=== PATIENT | male | born 1945 | race Caucasian/White ===

== ENCOUNTER 2018-04-17 06:19 | Inpatient (IN) ==
[2018-04-17] MEDS ORDERED: *HR* Morphine 2 MG/ML SYRINGE IVP PRN (08:41)
[2018-04-17] MEDS ORDERED: Nitroglycerin 0.4 MG TAB.SUBL SL PRN (08:41)
[2018-04-17] MEDS ORDERED: Ondansetron 4 MG/2 ML VIAL IVP PRN (08:41)
[2018-04-17] MEDS ORDERED: D5% in Water 1,000 ML IVC PRN (08:47)
[2018-04-17] MEDS ORDERED: *HR* Dextrose 50 % in Water (Syg) 50 ML SYRINGE IVP PRN (08:47)
[2018-04-17] MEDS ORDERED: Dextrose Gel 15 GM/37.5 ML TUBE PO PRN ×2 (08:47)
[2018-04-17] MEDS ORDERED: Albuterol 2.5 MG/3 ML NEBULIZER IH PRN (08:51)
[2018-04-17 09:16] LABS: Basophils # 0.1 K/mcL (0.0-0.2); Basophils % 0.6 %; Eosinophils # 0.1 K/mcL (0.0-0.6); Hematocrit 41.6 % (37.5-50.1); Hemoglobin 13.6 g/dL (12.9-16.9); Immature Granulocytes % 0.6 % (0-4); Lymphocytes # 1.2 K/mcL (0.6-4.6); Mean Corpuscular HGB Conc 32.7 g/dL (31.6-35.5); Mean Corpuscular Volume 82.5 fL (83.0-100.0); Mean Platelet Volume 9.8 fL (9.4-12.4); Monocytes # 0.9 K/mcL (0.0-1.3); Monocytes % 10.6 %; Neutrophils # 6.3 K/mcL (1.6-8.9); Platelet Count 167 K/mcL (140-400); Red Blood Count 5.04 M/mcL (4.19-5.50); Red Cell Distribution Width 15.7 % (11.5-14.5); Segmented Neutrophils % 73.2 %
[2018-04-17] MEDS ORDERED: Naloxone 0.4 MG/ML INJ IVP PRN (09:20)
[2018-04-17] MEDS ORDERED: Acetaminophen 325 MG TABLET PO PRN (09:20)
[2018-04-17] MEDS ORDERED: NON-FORMULARY MEDICATION 1 EACH EACH (Insulin Aspart [Novolog Flexpen] 4 UNIT) SQ SCH (09:28)
[2018-04-17] MEDS ORDERED: Cyanocobalamin (B-12) 1,000 MCG/ML VIAL IM SCH (09:30)
[2018-04-17 09:35] LABS: BUN/Creatinine Ratio 11 (6-26); Blood Urea Nitrogen 12 mg/dL (8-23); Carbon Dioxide 25 mEq/L (23-29); Chloride 99 mEq/L (98-107); Chol/HDL Ratio 2.1 (0-4.9); Cholesterol 99 mg/dL (< 200); Glucose 174 mg/dL (70-105); HDL Cholesterol 48 mg/dL (40-59); LDL Cholesterol,Calculated 39 mg/dL (0-99); Osmolality,Calculated 276 (280-300); Potassium 4.7 mEq/L (3.5-5.1); Sodium 131 mEq/L (136-145); Triglycerides 59 mg/dL (< 150); eGFR For Non-African Americans > 60 (> 60)
[2018-04-17 09:39] LABS: Troponin I 0.05 ng/mL (< 0.04)
[2018-04-17 09:51] LABS: Estimated Average Glucose 174 mg/dl; Hemoglobin A1C 7.7 %
[2018-04-17] MEDS: Multivit/Ca/Min/Fe/FA 1 TAB TABLET PO SCH (10:05)
[2018-04-17] MEDS: Pregabalin 75 MG CAPSULE PO SCH ×2 (10:05→20:48)
[2018-04-17] MEDS: Aspirin 81 MG TAB.CHEW PO SCH (10:07)
[2018-04-17] MEDS: Apixaban 5 MG TABLET PO SCH ×2 (10:07→20:47)
[2018-04-17] MEDS: *HR* Amiodarone 200 MG TABLET PO SCH (10:07)
[2018-04-17] MEDS: Fluticasone Propionate Nasal 50 MCG/SPRAY BOTTLE NS SCH (10:11)
[2018-04-17] MEDS: Insulin LISPRO 300 UNITS/3 ML VIAL SQ SCH ×5 (11:27→21:49)
[2018-04-17] MEDS ORDERED: Insulin LISPRO 300 UNITS/3 ML VIAL SQ SCH ×2 (11:30→21:00)
[2018-04-17] MEDS: Budesonide/Formoterol 160/4.5 MDI IH SCH ×3 (11:57→19:36)
[2018-04-17] MEDS ORDERED: NON-FORMULARY MEDICATION 1 EACH EACH (Insulin Aspart [Novolog Flexpen] 10 UNIT) SQ SCH (12:00)
--- NOTE | 2018-04-17 12:37 | Internal Med History&Physical ---
Date of Encounter: 04/17/18 Time of Encounter: 09:07 Internal Medicine - H&P: [facility] Chief complaint: "Chest pain" Admitted From: Hospital to Hospital Transfer Plans for Post Hospital Care: Home History of present illness: Mr. Reyez is a 72 year old male with PMH of significant CAD s/p multiple stents and multiple CABGs, Type II DM, HTN, HLD, Afib, COPD, and SPIKE, who presented to OSH ED today with chest pain. He states that around 3 AM today, he woke up with a sensation of his "heart racing." He subsequently "felt an elephant" on his chest. He took two doses of SL nitro at home, which helped with the pain. In the OSH ED, chest pain resolved with 1 dose of nitro and 1 dose of morphine. Initial troponin was WNL. He is pain free at this time. He denies any fever, chills, SOB, nausea, vomiting, abdominal pain, changes in bladder, or changes in bowels. He recently moved here from [facility], and he does not yet have a PCP or billing collections specialist here. He states that he has been compliant with all of his medications. He had last ECHO and stress test about 1 year ago. He has no other complaints at this time. Past Med Surg Social Fam HX - Past Medical History Attestation: Yes The following information was validated with the patient. Source: patient Medical history: atrial fibrillation, COPD, coronary artery disease, diabetes ( Type II), hyperlipidemia, hypertension, myocardial infarction Additional medical history: Mitral Regurgitation, SPIKE Psychiatric history: no psych history - Past Surgical History Surgical History: coronary bypass (CABG), AICD Additional surgical history: Right rotator cuff surgery, ICD-2004 - Social History Smoking Status: Former smoker Smokeless Tobacco Status: No Alcohol use: rarely Drug use: none - Additional Family History Additional family history: No significant family history per patient. Internal Medicine - H&P: Meds Albuterol Sulfate [Proair Hfa] 2 puff IH TID PRN 04/17/18 [History] Amiodarone [Cordarone] 200 mg PO DAILY 04/17/18 [History] Apixaban [Eliquis] 5 mg PO BID 04/17/18 [History] Aspirin 81 mg PO DAILY 04/17/18 [History] Budesonide/Formoterol 160/4.5 [Symbicort 160/4.5] 2 puff IH BIDR 04/17/18 [ History] Calcium Carbonate [Tums] 1,000 mg PO DAILY 04/17/18 [History] Carvedilol 6.25 mg PO BID 04/17/18 [History] Cyanocobalamin (B-12) [Vitamin B12] 1,000 mcg IM Q2W 04/17/18 [History] Fluticasone Propionate Nasal [Flonase] 50 mcg NS DAILY 04/17/18 [History] Insulin ASPART [Novolog Flexpen] 4 unit SQ 0900 04/17/18 [History] Insulin ASPART [Novolog Flexpen] 10 unit SQ 1200,1700 04/17/18 [History] Insulin Glargine,Hum.rec.anlog [Lantus Solostar] 35 unit SQ HS 04/17/18 [History ] Lisinopril [Zestril] 10 mg PO DAILY 04/17/18 [History] Melatonin 10 mg PO HS 04/17/18 [History] Metformin HCl [Glucophage] 1,000 mg PO BID 04/17/18 [History] Multivitamin [One Daily Multivitamin] 1 tab PO DAILY 04/17/18 [History] Nitroglycerin [Nitrostat] 0.4 mg SL Q5MIN 04/17/18 [History] Pregabalin [Lyrica] 150 mg PO BID 04/17/18 [History] Rosuvastatin [Crestor] 40 mg PO HS 04/17/18 [History] 3 Allergy/AdvReac Type Severity Reaction Status Date / Time No Known Allergies Allergy Verified 04/17/18 04:22 All Systems PM: A 10-system review of systems was performed and is negative for pertinent findings except as documented above in the HPI. - Constitutional Vitals: Temp Pulse Resp BP Pulse Ox 97.7 F 54 16 121/71 98 04/17/18 10:50 04/17/18 10:50 04/17/18 11:57 04/17/18 10:50 04/17/18 11:57 General appearance: Present: cooperative, A&O X 3, pleasant, no acute distress, obese, answers questions appropriately - Head Head exam: Present: atraumatic, normocephalic - Eye Eye exam: Present: EOMI, PERRL. Absent: conjunctival injection, nystagmus, scleral icterus - ENT ENT exam: Present: mucous membranes moist, normal external ear exam, normal oropharynx - Neck Neck exam general surgery: Present: supple, trachea midline. Absent: lymphadenopathy, tenderness, thyromegaly - Respiratory Respiratory exam: Present: CTAB. Absent: accessory muscle use, rales, rhonchi, wheezes Additional comments: Normal WOB - Cardiovascular Cardiovascular exam: Present: RRR, +S1, +S2. Absent: diastolic murmur, gallop, rubs, systolic murmur Additional comments: No BLE edema - GI/Abdominal GI/Abdominal exam: Present: normal bowel sounds, soft. Absent: distended, hepatomegaly, mass, splenomegaly, tenderness - Neurological Exam Neurological exam: Present: alert, CN II-XII intact, oriented X3, no focal deficits, strengths equal and symetr throughout. Absent: motor sensory deficit , facial droop, speech deficit - Psychiatric Psychiatric exam: Present: normal affect, normal mood. Absent: agitated, anxious, depressed - Skin Skin exam: Present: dry, intact, warm. Absent: cyanosis, rash Internal Med - H&P Results - Labs CBC & Chem 7: 04/17/18 08:49 04/17/18 08:49 Labs: Short CBC 04/17/18 Range/Units 08:49 WBC 8.7 (4.3-11.1) K/mcL Hgb 13.6 (12.9-16.9) g/dL Hct 41.6 (37.5-50.1) % Plt Count 167 (140-400) K/mcL Neutrophils # 6.3 (1.6-8.9) K/mcL BMP 04/17/18 08:49 Sodium 131 L Potassium 4.7 Chloride 99 Carbon Dioxide 25 BUN 12 Creatinine 1.12 Glucose 174 H Calcium 9.0 Cardiac Enzymes 04/17/18 Range/Units 08:49 Troponin I 0.05 H* (< 0.04) ng/mL - VTE Contraindication No Overlap Therapy: Admin of oral Factor Xa Inhibitor - Assessment and plan (1) Chest pain Current Visit: Yes Status: Acute Assessment and plan: Admit for observation with telemetry. Trend cardiac enzymes x 3. Obtain ECHO. Continue home medications. Start supplemental oxygen. Start SL nitro and IV morphine PRN chest pain. Obtain stress test in AM. Obtain UDS. Obtain labwork in AM. Consider cardiology consult based on ECHO and stress test results. SW consulted to set up close PCP and cardiology follow up at discharge. Qualifiers: Chest pain type: unspecified Qualified Code(s): R07.9 - Chest pain, unspecified (2) CAD (coronary artery disease) Current Visit: Yes Status: Acute Assessment and plan: Management as per above. Qualifiers: Coronary Disease-Associated Artery/Lesion type: unspecified vessel or lesion type [place] vs. transplanted heart: unspecified whether [place] or transplanted heart Associated angina: angina presence unspecified Qualified Code(s): I25.10 - Atherosclerotic heart disease of [place] coronary artery without angina pectoris (3) Afib Current Visit: Yes Status: Acute Assessment and plan: Continue home medications. Qualifiers: Atrial fibrillation type: chronic Qualified Code(s): I48.2 - Chronic atrial fibrillation (4) HTN (hypertension) Current Visit: Yes Status: Chronic Assessment and plan: Continue home medications. Qualifiers: Hypertension type: essential hypertension Qualified Code(s): I10 - Essential (primary) hypertension (5) HLD (hyperlipidemia) Current Visit: Yes Status: Chronic Assessment and plan: Continue home medications. Qualifiers: Hyperlipidemia type: mixed hyperlipidemia Qualified Code(s): E78.2 - Mixed hyperlipidemia (6) Type 2 diabetes mellitus with peripheral neuropathy Current Visit: Yes Status: Chronic Assessment and plan: Start accuchecks and moderate dose SSI QID AC/HS. Start home insulin regimen. (7) COPD (chronic obstructive pulmonary disease) Current Visit: Yes Status: Acute Assessment and plan: Start albuterol nebs Q4H PRN SOB/wheezing. Continue home inhalers. Qualifiers: COPD type: unspecified COPD Qualified Code(s): J44.9 - Chronic obstructive pulmonary disease, unspecified (8) SPIKE (obstructive sleep apnea) Current Visit: Yes Status: Chronic Assessment and plan: Start CPAP QHS at home settings. (9) DVT prophylaxis Current Visit: Yes Status: Acute Assessment and plan: Start SCDs. Continue home eliquis. - Time Spent With Patient Total time spent is greater than 50% in coordination of care (as documented) at patient's floor/unit and/or counseling patient: less than 15 minutes
[2018-04-17 13:15] LABS: Amphetamine Screen,Urine Negative ng/mL (Cutoff=1000); Barbiturate Screen,Urine Negative ng/mL (Cutoff=200); Benzodiazepines Screen,Urine Negative ng/mL (Cutoff=200); Cannabinoid Screen,Urine Negative ng/mL (Cutoff = 50); Cocaine Screen,Urine Negative ng/mL (Cutoff= 300); Opiate Screen,Urine Positive ng/mL (Cutoff=300); Phencyclidine Screen,Urine Negative ng/mL (Cutoff=25)
[2018-04-17] MEDS ORDERED: Perflutren Lipid Microsphere 2 ML VIAL ONE (19:19)
[2018-04-17] MEDS ORDERED: Perflutren Lipid Microsphere 1.3 ML in 0.9 % Sodium Chloride 8.7 ML IVP ONE (19:23)
[2018-04-17] MEDS: Melatonin 3 MG TABLET PO SCH (20:47)
[2018-04-17] MEDS: Insulin DETEMIR 100 UNIT/ML X5UNITS SQ SCH (21:52)
[2018-04-18 06:45] LABS: Basophils % 0.5 %; Eosinophils # 0.1 K/mcL (0.0-0.6); Eosinophils % 1.6 %; Hematocrit 39.9 % (37.5-50.1); Immature Granulocytes % 0.3 % (0-4); Lymphocytes # 1.1 K/mcL (0.6-4.6); Lymphocytes % 14.1 %; Mean Corpuscular HGB Conc 32.6 g/dL (31.6-35.5); Mean Corpuscular Hemoglobin 26.4 pg (28.0-33.3); Mean Corpuscular Volume 81.1 fL (83.0-100.0); Mean Platelet Volume 9.9 fL (9.4-12.4); Monocytes # 0.9 K/mcL (0.0-1.3); Neutrophils # 5.5 K/mcL (1.6-8.9); Platelet Count 162 K/mcL (140-400); Red Blood Count 4.92 M/mcL (4.19-5.50); Red Cell Distribution Width 15.9 % (11.5-14.5); Segmented Neutrophils % 71.5 %
[2018-04-18 06:46] LABS: INR 1.3; Prothrombin Time 14.6 Seconds (9.4-12.1)
[2018-04-18 07:07] LABS: BUN/Creatinine Ratio 12 (6-26); Blood Urea Nitrogen 14 mg/dL (8-23); Calcium 9.1 mg/dL (8.6-10.3); Carbon Dioxide 21 mEq/L (23-29); Chloride 100 mEq/L (98-107); Glucose 149 mg/dL (70-105); Magnesium 1.8 mg/dL (1.6-2.6); Osmolality,Calculated 279 (280-300); Potassium 4.2 mEq/L (3.5-5.1); Sodium 133 mEq/L (136-145); eGFR For Non-African Americans > 60 (> 60)
[2018-04-18] MEDS: Insulin LISPRO 300 UNITS/3 ML VIAL SQ SCH ×7 (07:47→20:17)
[2018-04-18] MEDS: Budesonide/Formoterol 160/4.5 MDI IH SCH ×2 (08:04→19:56)
[2018-04-18] MEDS: Apixaban 5 MG TABLET PO SCH ×2 (09:46→20:16)
[2018-04-18] MEDS: Pregabalin 75 MG CAPSULE PO SCH ×2 (09:46→20:16)
[2018-04-18] MEDS: *HR* Amiodarone 200 MG TABLET PO SCH (09:46)
[2018-04-18] MEDS: Fluticasone Propionate Nasal 50 MCG/SPRAY BOTTLE NS SCH (09:46)
[2018-04-18] MEDS: Aspirin 81 MG TAB.CHEW PO SCH (09:46)
[2018-04-18] MEDS: Multivit/Ca/Min/Fe/FA 1 TAB TABLET PO SCH (09:46)
--- NOTE | 2018-04-18 09:51 | Internal Med Progress Note ---
Hospitalist Progress Note - Encounter Date of Encounter: 04/18/18 Time of Encounter: 08:47 - Subjective Interval History: Patient had no acute events overnight. He states that he remains chest pain free. He denies fever, chills, SOB, nausea, vomiting, or abdominal pain. He has no complaints at this time. - Exam Vitals: Temp Pulse Resp BP Pulse Ox 98.3 F 50 18 124/78 97 04/18/18 07:34 04/18/18 07:34 04/18/18 08:04 04/18/18 07:34 04/18/18 08:04 Exam: Gen - Awake, alert, no acute distress HEENT - NCAT, PERRLA, EOMI, hearing grossly intact, oropharynx benign CV - RRR, normal S1 and S2, no M/R/G, no BLE edema Resp - Normal WOB, CTAB, no W/R/R GI - Soft, NT/ND, no masses, normal bowel sounds, no HSP Skin - Warm, dry, no rashes/lesions/ulcers Psych - Normal mood and affect, no depression or anxiety - Assessment and Plan (1) Chest pain Current Visit: Yes Status: Resolved Assessment and Plan: No chest pain since admission. Troponin peaked at 0.05 and then trended down to 0.04. Cancel stress test this AM and consult cardiology; appreciate their input. Obtain ECHO. Continue home medications. Continue supplemental oxygen. Continue SL nitro and IV morphine PRN chest pain. Will await further recommendations from cardiology. Recheck labwork in AM. SW consulted to set up close PCP and cardiology follow up at discharge. (2) CAD (coronary artery disease) Current Visit: Yes Status: Chronic Assessment and Plan: Management as per above. (3) Afib Current Visit: Yes Status: Chronic Assessment and Plan: Continue home medications. Cardiology consulted as per above; appreciate their input. (4) HTN (hypertension) Current Visit: Yes Status: Chronic Assessment and Plan: Continue home medications. (5) HLD (hyperlipidemia) Current Visit: Yes Status: Chronic Assessment and Plan: Continue home medications. (6) Type 2 diabetes mellitus with peripheral neuropathy Current Visit: Yes Status: Chronic Assessment and Plan: Continue accuchecks and moderate dose SSI QID AC/HS. Continue home insulin regimen. (7) COPD (chronic obstructive pulmonary disease) Current Visit: Yes Status: Chronic Assessment and Plan: Continue albuterol nebs Q4H PRN SOB/wheezing. Continue home inhalers. (8) SPIKE (obstructive sleep apnea) Current Visit: Yes Status: Chronic Assessment and Plan: Continue CPAP QHS at home settings. (9) DVT prophylaxis Current Visit: Yes Status: Acute Assessment and Plan: Continue SCDs and home eliquis. 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) Internal Medicine: Result - Labs CBC & Chem 7: 04/18/18 05:47 04/18/18 05:47 Labs: Short CBC 04/18/18 Range/Units 05:47 WBC 7.7 (4.3-11.1) K/mcL Hgb 13.0 (12.9-16.9) g/dL Hct 39.9 (37.5-50.1) % Plt Count 162 (140-400) K/mcL Neutrophils # 5.5 (1.6-8.9) K/mcL BMP 04/18/18 05:47 Sodium 133 L Potassium 4.2 Chloride 100 Carbon Dioxide 21 L BUN 14 Creatinine 1.13 Glucose 149 H Calcium 9.1 Cardiac Enzymes 04/17/18 04/17/18 Range/Units 14:21 19:58 Troponin I 0.04 H* 0.04 H* (< 0.04) ng/mL - ABG Interpretation ABG results: PT/INR, D-dimer PT 14.6 Seconds (9.4-12.1) H 04/18/18 05:47 - VTE Contraindication No Overlap Therapy: Admin of oral Factor Xa Inhibitor Consult Discharge Plan - Plan Referrals: NONE,PCP [Primary Care Provider] - (1) Chest pain Qualifiers: Chest pain type: unspecified Qualified Code(s): R07.9 - Chest pain, unspecified (2) CAD (coronary artery disease) Qualifiers: Coronary Disease-Associated Artery/Lesion type: unspecified vessel or lesion type [place] vs. transplanted heart: unspecified whether [place] or transplanted heart Associated angina: angina presence unspecified Qualified Code(s): I25.10 - Atherosclerotic heart disease of [place] coronary artery without angina pectoris (3) Afib Qualifiers: Atrial fibrillation type: chronic Qualified Code(s): I48.2 - Chronic atrial fibrillation (4) HTN (hypertension) Qualifiers: Hypertension type: essential hypertension Qualified Code(s): I10 - Essential (primary) hypertension (5) HLD (hyperlipidemia) Qualifiers: Hyperlipidemia type: mixed hyperlipidemia Qualified Code(s): E78.2 - Mixed hyperlipidemia (7) COPD (chronic obstructive pulmonary disease) Qualifiers: COPD type: unspecified COPD Qualified Code(s): J44.9 - Chronic obstructive pulmonary disease, unspecified
--- NOTE | 2018-04-18 13:43 | Cardiology Consult Note ---
Date of Encounter: 04/18/18 Time of Encounter: 13:20 Assessment and Plan (1) Chest pain Current Visit: Yes Status: Resolved Pt with multiple coronary aa disease risk factors -He has a PMH of CAD s/p 8 total stents and CABG, t2DM, HTN, a Fib, COPD, SPIKE on CPAP, HDL. He presented to the hospital on at 3am with the sensation that his heart was "beating out of his chest" and had associated cold sweats. He said he felt like he had a squeezing feeling in his chest substernally, like an "elephant was sitting on his chest." -the pt has a hx of 3 TN's but states that this pain is unlike his prior TN's -at home he took 2 SL nitroglycerins, which didn't really help the pain. He was given 1x more nitro in the ED and a dose of morphine and 4 baby ASA's Troponin was 0.05 x1, 0.04 x2 -last ECHO was 1yr ago -ECHO 04/17/18 Impressions: LVEF 45%, Mildly dilated left ventricle, Diastolic dysfunction with restricted filling pattern. There is no LV thrombus. RV size is not optimally visualized. Function mildly reduced by Doppler. Mild-moderate mitral regurgitation. Moderate tricuspid regurgitation. Mild pulmonic regurgitation. Mild pulmonary hypertension. A device lead was visualized in the right atrium and right ventricle. -CXR negative for acute cardiopulmonary process -EKG at [facility] showed bradycardia, old q waves present, QT prolongation Plan: -continue telemetry -Continue home medications: Amiodarone 200mg PO daily, ASA 81mg PO daily, Coreg 6.25mg PO BID, Zestril 10mg PO daily, Crestor 40mg PO hs -Nitro 0.4mg SL prn chest pain -plan for stress test this weekend -pt to establish care with [facility] after discharge for close follow up -cardiac diet Qualifiers: Chest pain type: unspecified Qualified Code(s): R07.9 - Chest pain, unspecified (2) Chronic HFrEF (heart failure with reduced ejection fraction) Current Visit: No Status: Chronic Pt has a hx of 3x TN, CABG and s/p PCI with a total of 8 stents. He has a hx of multiple CAD risk factors including DM, obesity, cigarette abuse Troponin was 0.05 x1, 0.04 x2 -last ECHO was 1yr ago -ECHO 04/17/18 Impressions: LVEF 45%, Mildly dilated left ventricle, Diastolic dysfunction with restricted filling pattern. There is no LV thrombus. RV size is not optimally visualized. Function mildly reduced by Doppler. Mild-moderate mitral regurgitation. Moderate tricuspid regurgitation. Mild pulmonic regurgitation. Mild pulmonary hypertension. A device lead was visualized in the right atrium and right ventricle. -EKG at [facility] showed bradycardia, old q waves present, QT prolongation Plan: -Continue home medications: Amiodarone 200mg PO daily, ASA 81mg PO daily, Coreg 6.25mg PO BID, Zestril 10mg PO daily, Crestor 40mg PO hs -manage modifiable risk factors -encourage low fat, low cholesterol heart healthy diet -encourage low sodium diet -encourage fluid restriction diet (3) CAD (coronary artery disease) Current Visit: No Status: Chronic Management as per above. Plan: -Continue home medications: Amiodarone 200mg PO daily, ASA 81mg PO daily, Coreg 6.25mg PO BID, Zestril 10mg PO daily, Crestor 40mg PO hs Qualifiers: Coronary Disease-Associated Artery/Lesion type: unspecified vessel or lesion type [place] vs. transplanted heart: unspecified whether [place] or transplanted heart Associated angina: angina presence unspecified Qualified Code(s): I25.10 - Atherosclerotic heart disease of [place] coronary artery without angina pectoris (4) Afib Current Visit: Yes Status: Chronic Currently in sinus rhythm. Bradycardic HR at 49, regular rhythm. Plan: -continue home meds - on Amiodarone 200mg PO daily, Coreg 6.25mg PO BID Qualifiers: Atrial fibrillation type: chronic Qualified Code(s): I48.2 - Chronic atrial fibrillation (5) HTN (hypertension) Current Visit: No Status: Chronic BP 119/76 -well controlled Plan: -continue home meds - Zestril 10mg PO daily Qualifiers: Hypertension type: essential hypertension Qualified Code(s): I10 - Essential (primary) hypertension (6) HLD (hyperlipidemia) Current Visit: No Status: Chronic Continue home meds -Crestor 40mg PO hs Qualifiers: Hyperlipidemia type: mixed hyperlipidemia Qualified Code(s): E78.2 - Mixed hyperlipidemia (7) SPIKE (obstructive sleep apnea) Current Visit: No Status: Chronic CPAP at night and as needed. Discussion w patient/family: The assessment and plan as outlined above was discussed with the patient and/or family members who expressed understanding and agreement. All questions were answered. Thank you for involving us in the care of your patient. Please call with any questions. History of Present Illness Consult date: 04/18/18 Requesting physician: Bj Mcpherson Consult reason: Chest pain, ACS, hx of CAD and aFib Chief complaint: "palpiltations" History of present illness: Mr. Reyez is a 72 year old male who is a transfer from [place]. He has a PMH of CAD s/p 8 total stents and CABG, t2DM, HTN, a Fib, COPD, SPIKE on CPAP, HDL. He presented to the hospital on at 3am with the sensation that his heart was "beating out of his chest" and had associated cold sweats. He said he felt like he had a squeezing feeling in his chest substernally, like an "elephant was sitting on his chest." -the pt has a hx of 3 TN's but states that this pain is unlike his prior TN's -at home he took 2 SL nitroglycerins, which didn't really help the pain. He was given 1x more nitro in the ED and a dose of morphine and 4 baby ASA's Troponin was 0.05 x1, 0.04 x2 At this time the patient denies any a chest pain. He has chronic SOB from his COPD. He denies N/V/D, abd pain, fevers, chills or cold sweats. He recently moved to the area and has yet to establish care with a [facility] -last ECHO was 1yr ago -ECHO 04/17/18 Impressions: LVEF 45%, Mildly dilated left ventricle, Diastolic dysfunction with restricted filling pattern. There is no LV thrombus. RV size is not optimally visualized. Function mildly reduced by Doppler. Mild-moderate mitral regurgitation. Moderate tricuspid regurgitation. Mild pulmonic regurgitation. Mild pulmonary hypertension. A device lead was visualized in the right atrium and right ventricle. -CXR negative for acute cardiopulmonary process Fluids - none Electrolytes - Sodium 133 Nutrition - cardiac diet DVT prophylaxis - on Eliquis GI prophylaxis - not indicated Past Med Surg Social Fam HX - Past Medical History Medical history: atrial fibrillation, COPD, coronary artery disease, diabetes ( Type II), hyperlipidemia, hypertension, myocardial infarction Additional medical history: Mitral Regurgitation, SPIKE Psychiatric history: no psych history - Past Surgical History Surgical History: coronary bypass (CABG), AICD Additional surgical history: Right rotator cuff surgery, ICD-2004 - Social History Smoking Status: Former smoker Smokeless Tobacco Status: No Alcohol use: rarely Drug use: none Medications and Allergies Albuterol Sulfate [Proair Hfa] 2 puff IH TID PRN 04/17/18 [History] Amiodarone [Cordarone] 200 mg PO DAILY 04/17/18 [History] Apixaban [Eliquis] 5 mg PO BID 04/17/18 [History] Aspirin 81 mg PO DAILY 04/17/18 [History] Budesonide/Formoterol 160/4.5 [Symbicort 160/4.5] 2 puff IH BIDR 04/17/18 [ History] Calcium Carbonate [Tums] 1,000 mg PO DAILY 04/17/18 [History] Carvedilol 6.25 mg PO BID 04/17/18 [History] Cyanocobalamin (B-12) [Vitamin B12] 1,000 mcg IM Q2W 04/17/18 [History] Fluticasone Propionate Nasal [Flonase] 50 mcg NS DAILY 04/17/18 [History] Insulin ASPART [Novolog Flexpen] 4 unit SQ 0900 04/17/18 [History] Insulin ASPART [Novolog Flexpen] 10 unit SQ 1200,1700 04/17/18 [History] Insulin Glargine,Hum.rec.anlog [Lantus Solostar] 35 unit SQ HS 04/17/18 [History ] Lisinopril [Zestril] 10 mg PO DAILY 04/17/18 [History] Melatonin 10 mg PO HS 04/17/18 [History] Metformin HCl [Glucophage] 1,000 mg PO BID 04/17/18 [History] Multivitamin [One Daily Multivitamin] 1 tab PO DAILY 04/17/18 [History] Nitroglycerin [Nitrostat] 0.4 mg SL Q5MIN 04/17/18 [History] Pregabalin [Lyrica] 150 mg PO BID 04/17/18 [History] Rosuvastatin [Crestor] 40 mg PO HS 04/17/18 [History] 3 Allergy/AdvReac Type Severity Reaction Status Date / Time No Known Allergies Allergy Verified 04/17/18 04:22 All Systems Review: The remainder of the systems were reviewed and are negative - Constitutional Constitutional: snoring, no chills, no fever(s), no night sweats - Cardiovascular Cardiovascular: chest pain with exertion, dyspnea at rest, dyspnea on exertion, orthopnea, palpitations, paroxysmal nocturnal dyspnea, no chest pain at rest, no radiating jaw, neck or arm pain - Gastrointestinal Gastrointestinal: no abdominal pain, no diarrhea, no nausea - Musculoskeletal Musculoskeletal: arthralgias - Neurological Neurological: no numbness, no syncope Physical Examination Vital Signs, Last 4 Hours Temp Pulse Resp BP Pulse Ox 04/18/18 11:19 97.9 F 49 16 119/76 96 General: Conversant HEENT: Atraumatic, Normocephaly Neck: No JVD Cardiac: Normal S1 and S2, Other (bradycardic) Lungs: Normal Breath Sounds, No Wheeze, Rales, Rhonchi Neuro: Alert and responsive, No focal deficits noted Abdomen: Soft, Non-Tender Musculoskeletal: No Chest Wall Tenderness Extremities: No Edema Results 04/18/18 05:47 04/18/18 05:47 Lab Results 04/17/18 04/17/18 04/18/18 14:21 19:58 05:47 WBC Hgb Hct Plt Count INR 1.3 Sodium Potassium Chloride Carbon Dioxide BUN Creatinine Glucose Calcium Magnesium Troponin I 0.04 H* 0.04 H* 04/18/18 04/18/18 05:47 05:47 WBC 7.7 Hgb 13.0 Hct 39.9 Plt Count 162 INR Sodium 133 L Potassium 4.2 Chloride 100 Carbon Dioxide 21 L BUN 14 Creatinine 1.13 Glucose 149 H Calcium 9.1 Magnesium 1.8 Troponin I Consult Discharge Plan - Plan Referrals: Markel Garcia MD [Partnered Physician] - 05/26/18 3:10 pm (Appointment with Dr. Garcia to establish a Primary Care Physician. Appointment is May 26 at 3:10 PM. A packet will be delivered within a week which will include the following: appointment card, map to office, list of things to bring ( insurance card, license, etc), medication form. If you need to cancel please give a 24 hour notice.) Kiet Victor, [Partnered Physician] - 05/20/18 11:30 am (Please arrive 10- 15 minutes early. Please bring your insurance card and current medication list. If you need to cancel please so do with a 24 hour notice. An appointment reminder card will be mailed to you prior to your appointment.) NONE,PCP [Primary Care Provider] -
--- NOTE | 2018-04-18 17:07 | Event Note ---
Date of Encounter: 04/18/18 Time of Encounter: 17:04 Residents consultation was cosigned. [facility] would not allow me to admit and provide attestation. Please consider this event note as attestation to that consultation. Complicated cardiac history in this 72-year-old patient, who has undergone 3 separate bypass surgeries as outlined in the consultation. Presents with complaints of dyspnea and occasional chest heaviness. Minimal troponin elevation noted. Patient states he was last seen by his rn flight in [facility] in June 2017. No issues reported at that time. Patient underwent stress test last summer, which he states was negative and did not require further cardiac intervention. Patient reports prior EF 50%. During this hospital stay, LVEF estimated to be 45%. We have requested records. After review of records, we will make further recommendations. Given his complaints of chest discomfort, no history of significant CAD, minimal troponin elevation, and previous stress test less than one year ago - I suspect patient will require a cardiac catheterization. We discussed this and if it becomes necessary, patient and would be agreeable. Further recommendations to follow. Thanks, Sergio Fall DO FACC
[2018-04-18] MEDS: Insulin DETEMIR 100 UNIT/ML X5UNITS SQ SCH (20:20)
[2018-04-18] MEDS: Melatonin 3 MG TABLET PO SCH (21:51)
[2018-04-18] MEDS ORDERED: Melatonin 3 MG TABLET PO PRN (22:40)
[2018-04-18] MEDS ORDERED: Melatonin 3 MG TABLET PO ONE (23:00)
[2018-04-19 06:28] LABS: Basophils % 0.6 %; Eosinophils # 0.1 K/mcL (0.0-0.6); Eosinophils % 1.9 %; Hematocrit 40.3 % (37.5-50.1); Hemoglobin 13.3 g/dL (12.9-16.9); Immature Granulocytes % 0.5 % (0-4); Lymphocytes # 1.1 K/mcL (0.6-4.6); Lymphocytes % 17.5 %; Mean Corpuscular Hemoglobin 26.8 pg (28.0-33.3); Mean Corpuscular Volume 81.1 fL (83.0-100.0); Mean Platelet Volume 9.6 fL (9.4-12.4); Monocytes # 0.8 K/mcL (0.0-1.3); Monocytes % 13.1 %; Neutrophils # 4.2 K/mcL (1.6-8.9); Platelet Count 163 K/mcL (140-400); Red Blood Count 4.97 M/mcL (4.19-5.50); Red Cell Distribution Width 15.9 % (11.5-14.5); Segmented Neutrophils % 66.4 %
[2018-04-19 06:47] LABS: BUN/Creatinine Ratio 15 (6-26); Blood Urea Nitrogen 18 mg/dL (8-23); Calcium 9.5 mg/dL (8.6-10.3); Carbon Dioxide 23 mEq/L (23-29); Chloride 98 mEq/L (98-107); Glucose 152 mg/dL (70-105); Osmolality,Calculated 277 (280-300); Potassium 4.3 mEq/L (3.5-5.1); Sodium 131 mEq/L (136-145); eGFR For Non-African Americans 60 (> 60)
[2018-04-19] MEDS: Budesonide/Formoterol 160/4.5 MDI IH SCH ×2 (07:57→19:31)
--- NOTE | 2018-04-19 09:06 | Internal Med Progress Note ---
Hospitalist Progress Note - Encounter Date of Encounter: 04/19/18 Time of Encounter: 09:04 - Subjective Interval History: Patient had no acute events overnight. He states that he has had no chest pain since admission. He denies fever, chills, SOB, nausea, vomiting, or abdominal pain. He has no complaints at this time. - Exam Vitals: Temp Pulse Resp BP Pulse Ox 97.6 F 48 16 151/96 99 04/19/18 07:27 04/19/18 07:27 04/19/18 07:58 04/19/18 07:27 04/19/18 07:58 Exam: Gen - Awake, alert, no acute distress HEENT - NCAT, PERRLA, EOMI, hearing grossly intact, oropharynx benign CV - RRR, normal S1 and S2, no M/R/G, no BLE edema Resp - Normal WOB, CTAB, no W/R/R GI - Soft, NT/ND, no masses, normal bowel sounds, no HSP Skin - Warm, dry, no rashes/lesions/ulcers Psych - Normal mood and affect, no depression or anxiety - Assessment and Plan (1) Chest pain Current Visit: Yes Status: Resolved Assessment and Plan: No chest pain since admission. Troponin peaked at 0.05 and then trended down to 0.04. Cardiology consulted; appreciate their input. Awaiting OSH records. ECHO showed LVEF 45%, LV segmental wall abnormality, mildly dilated left ventricle, diastolic dysfunction with restricted filling pattern, no LV thrombus , RV function mildly reduced, mild-moderate mitral regurgitation, moderate tricuspid regurgitation, mild pulmonic regurgitation, and mild pulmonary hypertension. Continue home medications. Continue supplemental oxygen. Continue SL nitro and IV morphine PRN chest pain. Plan for [facility] on Saturday. Will await further recommendations from cardiology. Recheck labwork in AM. SW consulted to set up close PCP and cardiology follow up at discharge. (2) CAD (coronary artery disease) Current Visit: Yes Status: Chronic Assessment and Plan: Management as per above. (3) Afib Current Visit: Yes Status: Chronic Assessment and Plan: Continue home medications. Cardiology consulted as per above; appreciate their input. (4) HTN (hypertension) Current Visit: Yes Status: Chronic Assessment and Plan: Continue home medications. (5) HLD (hyperlipidemia) Current Visit: Yes Status: Chronic (6) Type 2 diabetes mellitus with peripheral neuropathy Current Visit: Yes Status: Chronic Assessment and Plan: Continue accuchecks and moderate dose SSI QID AC/HS. Continue home insulin regimen. (7) COPD (chronic obstructive pulmonary disease) Current Visit: Yes Status: Chronic Assessment and Plan: Continue albuterol nebs Q4H PRN SOB/wheezing. Continue home inhalers. (8) SPIKE (obstructive sleep apnea) Current Visit: Yes Status: Chronic Assessment and Plan: Continue CPAP QHS at home settings. (9) DVT prophylaxis Current Visit: Yes Status: Acute Assessment and Plan: Continue SCDs and home eliquis. - Time Spent with Patient Total time spent is greater than 50% in coordination of care (as documented) at patient's floor/unit and/or counseling patient: less than 15 minutes Plan of Care Discussed with: patient Internal Medicine: Result - Labs CBC & Chem 7: 04/19/18 06:07 04/19/18 06:07 Labs: Short CBC 04/19/18 Range/Units 06:07 WBC 6.4 (4.3-11.1) K/mcL Hgb 13.3 (12.9-16.9) g/dL Hct 40.3 (37.5-50.1) % Plt Count 163 (140-400) K/mcL Neutrophils # 4.2 (1.6-8.9) K/mcL BMP 04/19/18 06:07 Sodium 131 L Potassium 4.3 Chloride 98 Carbon Dioxide 23 BUN 18 Creatinine 1.20 Glucose 152 H Calcium 9.5 - ABG Interpretation ABG results: PT/INR, D-dimer PT 14.6 Seconds (9.4-12.1) H 04/18/18 05:47 - Impressions Impressions Echocardiogram 04/17/18 08:41 Impressions: LVEF 45%. LV segmental wall motion abnormality (see Diagram below). Mildly dilated left ventricle. Diastolic dysfunction with restricted filling pattern. There is no LV thrombus. Definity echo contrast was used. RV size is not optimally visualized. Function mildly reduced by Doppler. Mild-moderate mitral regurgitation. Moderate tricuspid regurgitation. Mild pulmonic regurgitation. Mild pulmonary hypertension. A device lead was visualized in the right atrium and right ventricle. Left Ventricular Wall Motion: Rest Echo Findings The apex, apical anterior, apical septal and apical lateral ornelas were hypokinetic. All other wall segments showed normal motion. Findings: Study Quality * Technically adequate exam. ECG Findings * Sinus bradycardia. Left Ventricle * LVEF 45%. * Mildly dilated left ventricle. * Diastolic dysfunction with restricted filling pattern. * There is no LV thrombus. * Definity echo contrast was used. Right Ventricle * RV size is not optimally visualized. Function mildly reduced by Doppler. Left Atrium * Moderately dilated left atrium. Right Atrium * Normal right atrial size. Mitral Valve * Normal mitral valve structure. * No mitral stenosis. * Mild-moderate mitral regurgitation. Aortic Valve * No aortic regurgitation. * Trileaflet aortic valve. * No aortic stenosis. Tricuspid Valve * Tricuspid valve not well visualized. * Moderate tricuspid regurgitation. * Estimated RA pressure is 3 mmHg. * Estimated RVSP is 40 mmHg. * Mild pulmonary hypertension. Pulmonic Valve * Pulmonic valve is not well visualized. * No pulmonic stenosis. * Mild pulmonic regurgitation. Pulmonary Artery * Pulmonary artery not well visualized. Aorta * Normally sized aortic root. Pericardium * There is no pericardial effusion present. Device lead * A device lead was visualized in the right atrium and right ventricle. Interatrial Septum * Interatrial septum not well evaluated. IVC * Normal IVC dimensions and inspiratory collapse. - VTE Contraindication No Overlap Therapy: Admin of oral Factor Xa Inhibitor Consult Discharge Plan - Plan Referrals: Markel Garcia MD [Partnered Physician] - 05/26/18 3:10 pm (Appointment with Dr. Garcia to establish a Primary Care Physician. Appointment is May 26 at 3:10 PM. A packet will be delivered within a week which will include the following: appointment card, map to office, list of things to bring ( insurance card, license, etc), medication form. If you need to cancel please give a 24 hour notice.) Kiet Victor DO [Partnered Physician] - 05/20/18 11:30 am (Please arrive 10- 15 minutes early. Please bring your insurance card and current medication list. If you need to cancel please so do with a 24 hour notice. An appointment reminder card will be mailed to you prior to your appointment.) NONE,PCP [Primary Care Provider] - (1) Chest pain Qualifiers: Chest pain type: unspecified Qualified Code(s): R07.9 - Chest pain, unspecified (2) CAD (coronary artery disease) Qualifiers: Coronary Disease-Associated Artery/Lesion type: unspecified vessel or lesion type [place] vs. transplanted heart: unspecified whether [place] or transplanted heart Associated angina: angina presence unspecified Qualified Code(s): I25.10 - Atherosclerotic heart disease of [place] coronary artery without angina pectoris (3) Afib Qualifiers: Atrial fibrillation type: chronic Qualified Code(s): I48.2 - Chronic atrial fibrillation (4) HTN (hypertension) Qualifiers: Hypertension type: essential hypertension Qualified Code(s): I10 - Essential (primary) hypertension (5) HLD (hyperlipidemia) Qualifiers: Hyperlipidemia type: mixed hyperlipidemia Qualified Code(s): E78.2 - Mixed hyperlipidemia (7) COPD (chronic obstructive pulmonary disease) Qualifiers: COPD type: unspecified COPD Qualified Code(s): J44.9 - Chronic obstructive pulmonary disease, unspecified
[2018-04-19] MEDS: Insulin LISPRO 300 UNITS/3 ML VIAL SQ SCH ×7 (10:35→23:35)
[2018-04-19] MEDS: Multivit/Ca/Min/Fe/FA 1 TAB TABLET PO SCH (10:51)
[2018-04-19] MEDS: Aspirin 81 MG TAB.CHEW PO SCH (10:51)
[2018-04-19] MEDS: Pregabalin 75 MG CAPSULE PO SCH ×2 (10:51→21:12)
[2018-04-19] MEDS: Apixaban 5 MG TABLET PO SCH ×2 (10:51→21:12)
[2018-04-19] MEDS: *HR* Amiodarone 200 MG TABLET PO SCH (10:51)
[2018-04-19] MEDS: Fluticasone Propionate Nasal 50 MCG/SPRAY BOTTLE NS SCH (10:53)
--- NOTE | 2018-04-19 10:54 | Cardiology Progress Note ---
Date of Encounter: 04/19/18 Time of Encounter: 10:51 Assessment and Plan (1) Ischemic cardiomyopathy Current Visit: Yes Status: Acute (2) CAD (coronary artery disease) Current Visit: Yes Status: Chronic 72-year-old with a complicated cardiac history including 3 separate CABG procedures, 2 in [place] and 1 in [place]. Presents with dyspnea and mild chest discomfort. LVEF 45%, which patient states is mildly decreased compared to his previous 50%. 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 We have discussed options for further evaluation. Given symptoms feeding to admission, mild reduction in EF, and relatively recent stress test - we discussed the risks, benefits, and alternatives to cardiac catheterization. Patient voiced understanding and is agreeable. We will plan for Saturday. Continue aspirin, beta neo, statin, and RENNY inhibitor therapy. Qualifiers: Coronary Disease-Associated Artery/Lesion type: unspecified vessel or lesion type [place] vs. transplanted heart: unspecified whether [place] or transplanted heart Associated angina: angina presence unspecified Qualified Code(s): I25.10 - Atherosclerotic heart disease of [place] coronary artery without angina pectoris (3) PAF (paroxysmal atrial fibrillation) Current Visit: Yes Status: Chronic History of atrial fibrillation on amiodarone and Eliquis therapy. We will need to hold Eliquis on Saturday in preparation for catheterization. Discussion w patient/family: The assessment and plan as outlined above was discussed with the patient and/or family members who expressed understanding and agreement. All questions were answered. Thank you for involving us in the care of your patient. Please call with any questions. Subjective Principal diagnosis: Chest discomfort Interval history: Patient seen and examined earlier today. States no significant chest discomfort or dyspnea overnight. Records received from outside facility. We will review. Overall, no clinical changes noted. Objective Vital Signs, Last 4 Hours Temp Pulse Resp BP Pulse Ox 04/19/18 07:58 16 99 04/19/18 07:27 97.6 F 48 16 151/96 97 General: Conversant, No Apparent Distress HEENT: Atraumatic, Normocephaly, Mucus Membranes Moist Neck: No JVD, Normal carotid pulses Cardiac: Reg Rate and Rhythm, Normal S1 and S2, No Murmur Lungs: Normal Breath Sounds, No Wheeze, Rales, Rhonchi Neuro: Alert and responsive, No focal deficits noted Abdomen: Soft, Non-Tender Skin: No rashes noted on visualized skin Musculoskeletal: No Chest Wall Tenderness Extremities: No Clubbing, No Cyanosis, No Edema Results 04/19/18 06:07 04/19/18 06:07 Lab Results 04/19/18 04/19/18 06:07 06:07 WBC 6.4 Hgb 13.3 Hct 40.3 Plt Count 163 Sodium 131 L Potassium 4.3 Chloride 98 Carbon Dioxide 23 BUN 18 Creatinine 1.20 Glucose 152 H Calcium 9.5 - Imaging and Cardiology Echo: report reviewed - EKG Interpretation EKG results cardiology: personally reviewed - VTE Contraindication No Overlap Therapy: Admin of oral Factor Xa Inhibitor Consult Discharge Plan - Plan Referrals: Markel Garcia MD [Partnered Physician] - 05/26/18 3:10 pm (Appointment with Dr. Garcia to establish a Primary Care Physician. Appointment is May 26 at 3:10 PM. A packet will be delivered within a week which will include the following: appointment card, map to office, list of things to bring ( insurance card, license, etc), medication form. If you need to cancel please give a 24 hour notice.) Kiet Victor DO [Partnered Physician] - 05/20/18 11:30 am (Please arrive 10- 15 minutes early. Please bring your insurance card and current medication list. If you need to cancel please so do with a 24 hour notice. An appointment reminder card will be mailed to you prior to your appointment.) NONE,PCP [Primary Care Provider] -
[2018-04-19] MEDS: Insulin DETEMIR 100 UNIT/ML X5UNITS SQ SCH (21:12)
[2018-04-19] MEDS: Melatonin 3 MG TABLET PO PRN (21:16)
[2018-04-20 03:37] LABS: Basophils % 0.6 %; Eosinophils # 0.2 K/mcL (0.0-0.6); Eosinophils % 2.9 %; Immature Granulocytes % 0.4 % (0-4); Lymphocytes # 1.5 K/mcL (0.6-4.6); Lymphocytes % 22.2 %; Mean Corpuscular HGB Conc 33.3 g/dL (31.6-35.5); Mean Corpuscular Hemoglobin 26.8 pg (28.0-33.3); Mean Corpuscular Volume 80.4 fL (83.0-100.0); Mean Platelet Volume 10.1 fL (9.4-12.4); Monocytes # 0.9 K/mcL (0.0-1.3); Monocytes % 12.7 %; Neutrophils # 4.2 K/mcL (1.6-8.9); Platelet Count 180 K/mcL (140-400); Red Blood Count 4.85 M/mcL (4.19-5.50); Red Cell Distribution Width 15.9 % (11.5-14.5); Segmented Neutrophils % 61.2 %
[2018-04-20 03:57] LABS: BUN/Creatinine Ratio 16 (6-26); Blood Urea Nitrogen 21 mg/dL (8-23); Calcium 9.2 mg/dL (8.6-10.3); Carbon Dioxide 24 mEq/L (23-29); Chloride 98 mEq/L (98-107); Glucose 136 mg/dL (70-105); Osmolality,Calculated 275 (280-300); Potassium 4.2 mEq/L (3.5-5.1); Sodium 130 mEq/L (136-145); eGFR For Non-African Americans 56 (> 60)
[2018-04-20] MEDS: Budesonide/Formoterol 160/4.5 MDI IH SCH ×2 (07:40→19:39)
--- NOTE | 2018-04-20 08:36 | Internal Med Progress Note ---
Hospitalist Progress Note - Encounter Date of Encounter: 04/20/18 Time of Encounter: 08:34 - Subjective Interval History: Patient had no acute events overnight. He states that he remains chest pain free. He denies fever, chills, SOB, nausea, vomiting, or abdominal pain. He has no complaints at this time. - Exam Vitals: Temp Pulse Resp BP Pulse Ox 97.9 F 46 15 152/88 98 04/20/18 07:46 04/20/18 07:46 04/20/18 07:46 04/20/18 07:46 04/20/18 07:46 Exam: Gen - Awake, alert, no acute distress HEENT - NCAT, PERRLA, EOMI, hearing grossly intact, oropharynx benign CV - RRR, normal S1 and S2, no M/R/G, no BLE edema Resp - Normal WOB, CTAB, no W/R/R GI - Soft, NT/ND, no masses, normal bowel sounds, no HSP Skin - Warm, dry, no rashes/lesions/ulcers Psych - Normal mood and affect, no depression or anxiety - Assessment and Plan (1) Chest pain Current Visit: Yes Status: Resolved Assessment and Plan: No chest pain since admission. Troponin peaked at 0.05 and then trended down to 0.04. Cardiology consulted; appreciate their input. Awaiting OSH records. ECHO showed LVEF 45%, LV segmental wall abnormality, mildly dilated left ventricle, diastolic dysfunction with restricted filling pattern, no LV thrombus , RV function mildly reduced, mild-moderate mitral regurgitation, moderate tricuspid regurgitation, mild pulmonic regurgitation, and mild pulmonary hypertension. Continue home medications. Continue supplemental oxygen. Continue SL nitro and IV morphine PRN chest pain. Plan for [facility] tomorrow; will hold eliquis today. Will await further recommendations from cardiology. Recheck labwork in AM. SW consulted to set up close PCP and cardiology follow up at discharge. (2) CAD (coronary artery disease) Current Visit: Yes Status: Chronic Assessment and Plan: Management as per above. (3) Afib Current Visit: Yes Status: Chronic Assessment and Plan: Continue home medications. Cardiology consulted as per above; appreciate their input. (4) HTN (hypertension) Current Visit: Yes Status: Chronic Assessment and Plan: BP better today. Continue home medications. Continue IV hydralazine PRN. (5) HLD (hyperlipidemia) Current Visit: Yes Status: Chronic Assessment and Plan: Continue home medications. (6) Type 2 diabetes mellitus with peripheral neuropathy Current Visit: Yes Status: Chronic Assessment and Plan: Continue accuchecks and increase to high dose SSI QID AC/HS. Continue home insulin regimen. (7) COPD (chronic obstructive pulmonary disease) Current Visit: Yes Status: Chronic Assessment and Plan: Continue albuterol nebs Q4H PRN SOB/wheezing. Continue home inhalers. (8) SPIKE (obstructive sleep apnea) Current Visit: Yes Status: Chronic Assessment and Plan: Continue CPAP QHS at home settings. (9) DVT prophylaxis Current Visit: Yes Status: Acute Assessment and Plan: Continue SCDs. Holding eliquis for [facility] tomorrow. 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) Internal Medicine: Result - Labs CBC & Chem 7: 04/20/18 03:07 04/20/18 03:07 Labs: Short CBC 04/20/18 Range/Units 03:07 WBC 6.8 (4.3-11.1) K/mcL Hgb 13.0 (12.9-16.9) g/dL Hct 39.0 (37.5-50.1) % Plt Count 180 (140-400) K/mcL Neutrophils # 4.2 (1.6-8.9) K/mcL BMP 04/20/18 03:07 Sodium 130 L Potassium 4.2 Chloride 98 Carbon Dioxide 24 BUN 21 Creatinine 1.28 Glucose 136 H Calcium 9.2 - ABG Interpretation ABG results: PT/INR, D-dimer PT 14.6 Seconds (9.4-12.1) H 04/18/18 05:47 - VTE Contraindication No Overlap Therapy: Admin of oral Factor Xa Inhibitor Consult Discharge Plan - Plan Referrals: Markel Garcia MD [Partnered Physician] - 05/26/18 3:10 pm (Appointment with Dr. Garcia to establish a Primary Care Physician. Appointment is May 26 at 3:10 PM. A packet will be delivered within a week which will include the following: appointment card, map to office, list of things to bring ( insurance card, license, etc), medication form. If you need to cancel please give a 24 hour notice.) Kiet Victor, [Partnered Physician] - 05/20/18 11:30 am (Please arrive 10- 15 minutes early. Please bring your insurance card and current medication list. If you need to cancel please so do with a 24 hour notice. An appointment reminder card will be mailed to you prior to your appointment.) NONE,PCP [Primary Care Provider] - (1) Chest pain Qualifiers: Chest pain type: unspecified Qualified Code(s): R07.9 - Chest pain, unspecified (2) CAD (coronary artery disease) Qualifiers: Coronary Disease-Associated Artery/Lesion type: unspecified vessel or lesion type [place] vs. transplanted heart: unspecified whether [place] or transplanted heart Associated angina: angina presence unspecified Qualified Code(s): I25.10 - Atherosclerotic heart disease of [place] coronary artery without angina pectoris (3) Afib Qualifiers: Atrial fibrillation type: chronic Qualified Code(s): I48.2 - Chronic atrial fibrillation (4) HTN (hypertension) Qualifiers: Hypertension type: essential hypertension Qualified Code(s): I10 - Essential (primary) hypertension (5) HLD (hyperlipidemia) Qualifiers: Hyperlipidemia type: mixed hyperlipidemia Qualified Code(s): E78.2 - Mixed hyperlipidemia (7) COPD (chronic obstructive pulmonary disease) Qualifiers: COPD type: unspecified COPD Qualified Code(s): J44.9 - Chronic obstructive pulmonary disease, unspecified
[2018-04-20] MEDS: Multivit/Ca/Min/Fe/FA 1 TAB TABLET PO SCH (09:35)
[2018-04-20] MEDS: Pregabalin 75 MG CAPSULE PO SCH ×2 (09:35→20:55)
[2018-04-20] MEDS: Aspirin 81 MG TAB.CHEW PO SCH (09:35)
[2018-04-20] MEDS: Fluticasone Propionate Nasal 50 MCG/SPRAY BOTTLE NS SCH (09:35)
[2018-04-20] MEDS: *HR* Amiodarone 200 MG TABLET PO SCH (09:36)
[2018-04-20] MEDS: Insulin LISPRO 300 UNITS/3 ML VIAL SQ SCH ×5 (09:36→18:10)
--- NOTE | 2018-04-20 10:50 | Event Note ---
Date of Encounter: 04/20/18 Time of Encounter: 10:47 Patient continues to do well. No chest discomfort reported. Continue aspirin, beta neo, RENNY inhibitor, and statin therapy. Anticoagulation held for pending heart catheterization. Risks, benefits, and alternatives to cardiac catheterization again discussed. Patient voiced understanding and wishes to proceed. Records received and will be made available for catheterization. Further recommendations to follow.
[2018-04-20] MEDS: Melatonin 3 MG TABLET PO PRN (20:55)
[2018-04-20] MEDS: Insulin DETEMIR 100 UNIT/ML X5UNITS SQ SCH (20:56)
[2018-04-20] MEDS ORDERED: Insulin LISPRO 300 UNITS/3 ML VIAL SQ SCH (21:00)
[2018-04-21 04:52] LABS: Basophils % 0.4 %; Eosinophils # 0.2 K/mcL (0.0-0.6); Eosinophils % 2.3 %; Hematocrit 41.4 % (37.5-50.1); Hemoglobin 13.9 g/dL (12.9-16.9); Immature Granulocytes % 0.5 % (0-4); Lymphocytes # 1.5 K/mcL (0.6-4.6); Lymphocytes % 15.8 %; Mean Corpuscular HGB Conc 33.6 g/dL (31.6-35.5); Mean Corpuscular Hemoglobin 27.2 pg (28.0-33.3); Mean Platelet Volume 10.5 fL (9.4-12.4); Monocytes # 1.3 K/mcL (0.0-1.3); Monocytes % 13.5 %; Neutrophils # 6.4 K/mcL (1.6-8.9); Platelet Count 170 K/mcL (140-400); Red Blood Count 5.11 M/mcL (4.19-5.50); Red Cell Distribution Width 15.4 % (11.5-14.5); Segmented Neutrophils % 67.5 %
[2018-04-21 05:07] LABS: BUN/Creatinine Ratio 19 (6-26); Blood Urea Nitrogen 22 mg/dL (8-23); Calcium 9.4 mg/dL (8.6-10.3); Carbon Dioxide 25 mEq/L (23-29); Chloride 96 mEq/L (98-107); Glucose 115 mg/dL (70-105); Osmolality,Calculated 272 (280-300); Sodium 129 mEq/L (136-145); eGFR For Non-African Americans > 60 (> 60)
[2018-04-21] MEDS: Insulin LISPRO 300 UNITS/3 ML VIAL SQ SCH ×4 (07:48→16:05)
[2018-04-21] MEDS: Aspirin 81 MG TAB.CHEW PO SCH (08:56)
[2018-04-21] MEDS: Multivit/Ca/Min/Fe/FA 1 TAB TABLET PO SCH (08:56)
[2018-04-21] MEDS: Pregabalin 75 MG CAPSULE PO SCH (08:56)
[2018-04-21] MEDS: *HR* Amiodarone 200 MG TABLET PO SCH (08:56)
--- NOTE | 2018-04-21 08:59 | Pre-Sedation Evaluation ---
Pre-sedation evaluation - Pre-sedation checklist Date of procedure: 04/21/18 Procedure: [facility] Recent Vitals: Last Vital Signs Temp 98.2 F 04/21/18 06:53 Pulse 51 04/21/18 06:53 Resp 16 04/21/18 06:53 BP 121/80 04/21/18 06:53 Pulse Ox 96 04/21/18 06:53 H&P (including ROS) documented in medical record: Yes Previous reaction to sedatives/anesthetics: No Dietary Status: NPO after Midnight ASA Classification *see protocol: CLASS II-Mild systemic disease Plan of Care: Pt appropriate candidate for procedure/moderate/conscious sedation , Risks/benefits of procedure/sedation discussed w/ patient/family Cardiac Registry (Cardio Only) - Functional Capacity Functional Capacity: >=4 METS with symptoms - Clincal Frailty Scale Clinical Frailty Scale: Managing Well
[2018-04-21] MEDS ORDERED: 0.9 % Sodium Chloride 1,000 ML ONE ×2 (10:53→11:11)
[2018-04-21] MEDS ORDERED: Heparin 1,000 UNITS/500 mL 500 ML ONE (10:53)
[2018-04-21] MEDS ORDERED: Nitroglycerin 1,000 MCG/10 ML VIAL IV ONE ×2 (10:53→10:59)
[2018-04-21] MEDS ORDERED: *HR* Heparin 10,000 UNIT/10 ML VIAL ONE (10:53)
[2018-04-21] MEDS ORDERED: ISOVUE-370 200 ML INFUS..BTL IV ONE ×2 (10:53→11:35)
[2018-04-21] MEDS: Budesonide/Formoterol 160/4.5 MDI IH SCH (11:06)
[2018-04-21] MEDS ORDERED: *HR* Midazolam HCl 2 MG/2 ML VIAL ONE ×2 (11:08→11:17)
[2018-04-21] MEDS ORDERED: *HR* FentaNYL (PF) 100 MCG/2 ML VIAL ONE (11:08)
[2018-04-21] MEDS ORDERED: Isosorbide MONOnitrate (24 HR) 30 MG TAB.ER.24H PO SCH (12:15)
--- NOTE | 2018-04-21 12:15 | Event Note ---
Date of Encounter: 04/21/18 Time of Encounter: 12:14 - Cardiology Event Note C completed, no intervention warranted. Final report pending. Continue medical therapy--ASA, Statin, BB, ACEi. Will add Imdur 30mg daily. Cardiology signing off. Reconsult PRN. Will coordinate outpt follow-up in 2-3 weeks.
--- NOTE | 2018-04-21 12:29 | Invasive Diagnostic Lab Proc ---
Name: Jose L Reyez Date of Study: 04/21/2018 Date: 1945 Ht: 70.1in Medical Record#: [id number] Age: 72 Wt: 224.87lb Gender: Male BSA: 2.2 Order #: [id number] BMI: 32.19 Physicians Procedure Physician: Keshawn Cristobal MD, [facility] Referring MD: Referring MD: Staff Name Position Time [facility] Monitor 11:09 AM Lilian Blair RT (R) Scrub 11:12 AM Merry Gee RT Monitor 11:12 AM Jasmine Hunt RN Make Up Worker 11:12 AM Procedures Performed Procedure L HRT ART/GRFT ANGIO AORTOGRAPHY, ABDOMINAL S&I Pre-Procedure Checklist Informed consent is complete signed and on chart. H&P is on chart. ID band is on and ID verified with patient. Patient NPO for procedure The procedure was described for the patient and questions were answered. Blood Pressure: 135/81 ECG is on chart. Rhythm: Sinus Bradycardia Plan of Care Patient will tolerate the procedure without complications. Adequate level of comfort will be maintained. Hemodynamics will remain stable Patient will recover from procedure without complications. Respiratory function will be maintained. Cardiac rhythm will remain stable. Patient temperature will be maintained. Patient and/or family have verbalized understanding of the procedure. Patient Education Chief Complaint/Reason for Test: Cardiac Cath Developmental Category: Geriatric (65+ years) Developmentally Appropriate for Age: Yes Learning Barriers: None Education Needs: Procedure Education Method: Verbal Information Taught: Cardiac Cath Educational Evaluation: Able to repeat information Intravenous Access Time IV Size Location DC'd Fluid/Drip Rate Units RN 20g 1 /" Patent On Arrival Rt Arm 0.9NaCl Allergies No Known Allergies Vital Signs Time BP (mmHg) HR (bpm) O2 Sat. RR (bpm) LOC 11:16 AM / % 4 = Oriented but drowsy 11:16 AM / % 4 = Oriented but drowsy 11:31 AM / % 4 = Oriented but drowsy 11:43 AM 125 / 74 47 97 % 15 11:48 AM 105 / 66 50 96 % 15 11:52 AM 115 / 73 49 97 % 13 11:58 AM 124 / 71 48 97 % 15 12:03 PM 126 / 79 49 98 % 18 11:08 AM 135 / 81 49 95 % 16 11:13 AM 134 / 79 50 94 % 19 11:18 AM 141 / 74 51 96 % 14 11:23 AM 121 / 77 52 86 % 12 11:27 AM 119 / 74 48 98 % 12 11:33 AM 123 / 77 49 97 % 16 11:38 AM 122 / 75 48 97 % 15 Procedural Medications Time Medication Dose Units Method Given By 11:12 AM Oxygen 2 L/min nasal cannula Jasmine Hunt RN 11:16 AM Versed 2 mg Intravenous Merry Gee RT 11:16 AM Fentanyl 50 mcg Intravenous Merry Gee RT 11:16 AM Lidocaine 2% 20 ml Subcutaneous Keshawn Cristobal MD, FACC 11:17 AM Versed 1 mg Intravenous Jasmine Hunt RN 11:17 AM Fentanyl 25 mcg Intravenous Jasmine Hunt RN 11:21 AM Oxygen 6 L/min Oxy Mask Jasmine Hunt RN 11:23 AM Oxygen 15 L/min Oxy Mask Jasmine Hunt RN 11:30 AM Oxygen 6 L/min Oxy Mask Jasmine Hunt RN 11:42 AM Oxygen 4 L/min Oxy Mask Elin Marsh RN 11:46 AM 0.9NaCl 500 ml/hr Intravenous Elin Marsh RN ASA Classification: CLASS II- Mild systemic disease (i.e. well-controlled diabetes, hypertension, asthma, cigarette smoking) Julienne Score Preprocedure Postprocedure Activity 2- Moves 4 extremities sustained head lift Activity 2- Moves 4 extremities sustained head lift Circulation 2- SBP +/= 20 points of pre-anesthetic level Circulation 2- SBP +/= 20 points of pre-anesthetic level Consciousness 2- Awake and alert oriented x 3 Consciousness 2- Awake and alert oriented x 3 O2 Saturation 2- Able to maintain O2 satruation of 92% on room air O2 Saturation 2- Able to maintain O2 satruation of 92% on room air Respiratory 2- Able to deep breathe and cough well Respiratory 2- Able to deep breathe and cough well Total Score 10 Total Score 10 Contrast Agent: Isovue Diagnostic Contrast: 194 ml Total Contrast: 194 ml Fluoro Dose: 16872 mGy Procedure Log Time Note Enter By 11:02 AM 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 oumm 11:09 AM Procedure start : 11:12 AM Lilian Blair RT (R) Position: Scrub Time in: :12 11:12 AM Merry Gee RT Position: Monitor Time in: :12 11:12 AM Jasmine Hunt RN Position: Make Up Worker Time in: :12 11:12 AM Patient charges- Angio tray pack, Navilyst 3mm J, Pulse Oximetry and ACIST tubing and transducer 11:12 AM IV Supplies used: J loop Angio Cath. 11:12 AM Case Delayed No 11:12 AM Hair removed from procedure site in holding area using clippers. Bilateral groin prepped with Chloraprep by Jasmine Hunt RN, then patient was draped. Skin intact. oumm 11:12 AM Physician arrived 11:12 mm 11:12 AM ASA Class CLASS II- Mild systemic disease (i.e. well-controlled diabetes, hypertension, asthma, cigarette smoking) oumm 11:12 AM Mikhail completed 11:12 AM Sign in performed according to hospital policy. 11:12 AM Procedure start :mm:12 AM Time: :12 Oxygen on at 2 L/min per nasal cannula by Jasmine Hunt RN :13 AM Time: :12 Patient comfortable and pain free: Yes 11:13 AM HR=50 bpm, TGIR=515/79 mmhg, SpO2=94.0 %, Resp=19 B/min 11:16 AM Time: 11:16 Versed 2 mg Intravenous Given by Merry Gee RT ouclint 11:16 AM Time: 11:16 Fentanyl 50 mcg Intravenous [facility] AM Time: 11:16LOC: 4 = Oriented but drowsy [facility] 11:16 AM Clinical Presentation: Unstable angina [facility] 11:16 AM Time out performed according to hospital policy [facility] 11:17 AM Time: :16 20 ml Lidocaine 2% to left groin Subcutaneous Given by Keshawn Cristobal MD, [facility] 11:17 AM Access obtained by percutaneous puncture. 5Fr 10cm Terumo [place] sheath placed in left Femoral artery. [id number] [facility] 11:17 AM Time: 11:17 Versed 1 mg Intravenous Given by Jasmine Hunt RN wyattclint 11:17 AM Time: 11:17 Fentanyl 25 mcg Intravenous Given by Jasmine Hunt RN 11:17 AM 5Fr FL 4 catheter inserted over the wire [facility] 11:18 AM HR=51 bpm, XISE=202/74 mmhg, SpO2=96.0 %, Resp=14 B/min 11:18 AM Pressure channel 1 zero failed. 11:18 AM Recorded Pressure: Ao, HR=49, Condition=Condition 1 (Aorta) Ao 133/81/102 11:18 AM LCA angiography performed in multiple views. [facility] 11:19 AM Catheter removed [facility] 11:19 AM 5Fr FR 4 catheter inserted over the wire [facility] 11:20 AM wire removed [facility] 11:20 AM RCA angiography performed in multiple views. [facility] 11:20 AM Recorded Pressure: Ao, HR=52, Condition=Condition 1 (Aorta) Ao 112/79/95 11:21 AM Time: 11:21 Oxygen on at 6 L/min per Oxy Mask by Jasmine Hunt RNclint 11:23 AM HR=52 bpm, EBHW=792/77 mmhg, SpO2=86.0 %, Resp=12 B/min 11:23 AM Time: 11:23 Oxygen on at 15 L/min per nasal cannula by Jasmine Hunt RN 11:25 AM SVG to the 1st Diagonal angio performed in multiple views. [facility] 11:27 AM HR=48 bpm, DNDE=915/74 mmhg, SpO2=98.0 %, Resp=12 B/min 11:28 AM Recorded Pressure: Ao, HR=49, Condition=Condition 1 (Aorta) Ao 110/71/90 11:28 AM Time: 11:13 Patient comfortable and pain free: Yes tsoummers 11:29 AM Radial Graft to the 1st OM angio performed in multiple views. oumm 11:30 AM Time: 11:30 Oxygen on at 6 L/min per Oxy Mask by Jasmine Hunt RN 11:30 AM [facility] AM JR4 reinserted [facility] 11:31 AM Time: 11:16LOC: 4 = Oriented but drowsy tsoummers 11:32 AM Lesion found in Proximal LAD. Pre Stenosis: 100 Pre DURAN Flow: tsoummers 11:32 AM Lesion found in 1st Marginal. Pre Stenosis: 100 Pre DURAN Flow: tsoummers 11:32 AM Lesion found in Proximal RCA. Pre Stenosis: 100 Pre DURAN Flow: tsoummers 11:33 AM HR=49 bpm, UMFG=791/77 mmhg, SpO2=97.0 %, Resp=16 B/min 11:35 AM [facility] AM 5Fr SOS catheter inserted over the wire [id number] [facility] 11:36 AM [facility] 11[facility] AM HR=48 bpm, NVQH=907/75 mmhg, SpO2=97.0 %, Resp=15 B/min 11:41 AM Catheter removed [facility] 11:41 AM 5Fr Cobra 2 catheter inserted over the wire [id number] [facility] 11:43 AM Time: 11:42 Oxygen on at 4 L/min per Oxy Mask by Elin Marsh RN 11:43 AM Time: 11:28 Patient comfortable and pain free: Yes tsoummers 11:43 AM HR=47 bpm, OKXL=356/74 mmhg, SpO2=97.0 %, Resp=15 B/min 11:44 AM Catheter removed yves 11:44 AM Pressure channel 1 zeroed. 11:44 AM 5Fr Pigtail catheter inserted over the wire [facility] 11:44 AM wire [facility] 11[facility]45 AM Recorded Pressure: Ao, HR=48, Condition=Condition 1 (Aorta) Ao 107/73/89 11:46 AM Time: 11:46 0.9NaCl 500 ml/hr Intravenous Given by Elin Marsh RN [facility] 11:46 AM Time: 11:31LOC: 4 = Oriented but drowsy [facility] 11:48 AM HR=50 bpm, EFJZ=815/66 mmhg, SpO2=96.0 %, Resp=15 B/min 11:48 AM Catheter removed [facility] 11:48 AM SOS reinserted [facility] 11:48 AM wire removed [facility] 11:52 AM HR=49 bpm, EIEF=742/73 mmhg, SpO2=97.0 %, Resp=13 B/min 11:53 AM Catheter removed [facility] 11:54 AM 5Fr Pigtail catheter inserted over the wire [facility] 11:54 AM wire removed [facility] 11:54 AM Catheter selectively placed in left ventricle [facility] 11:54 AM pressures recorded [facility] 11:55 AM Recorded Pressure: LV, HR=49, Condition=Condition 1 (Left Ventricle) LV 111/1/15 11:55 AM Recorded Pressure: LV, Ao, HR=48, Condition=Condition 1 (Left Ventricle) LV 112/6/20, (Aorta) Ao 114/36/78 11:55 AM wire and catheter removed [facility] 11:57 AM Bolus angiogram of left Femoral complete: 4 ml/sec for a total of 7 mls [facility] 11:57 AM Procedure completed at 11:57 04/21/2018 [facility] 11:58 AM HR=48 bpm, UWVX=115/71 mmhg, SpO2=97.0 %, Resp=15 B/min 11:58 AM Time: 11:43 Patient comfortable and pain free: Yes [facility] 11:59 AM Sign out completed: Radiation Dose 1108.36 mGy, 85721 cGy/cm2 Fluoro Time: 15.1 Isovue 370 - 200ml contrast 194 ml given by Keshawn Cristobal MD, [facility]. Complications: NoneCardiac Rehab Consult needed: NoConfirmed administered medications: Yes [facility] 11:59 AM Isovue 370 - 200ml,1 Bottle(s) used. [facility] 11:59 AM Arterial sheath pulled, Mynx closure device used and was Successful [id number] S/N. [facility] 11:59 AM Estimated Blood Loss: minimal tsoummers 11:59 AM Post ECG Sinus Bradycardia tsoummers 12:00 PM Post Blood Pressure 124/71 tsoummers 12:00 PM 12:00 Post Pulses Bilateral DP & PT 2+ tsoummers 12:00 PM Information taught Cardiac Cath and Mynx tsoummers 12:00 PM Education needs Procedure, Plan of Care, and Responsibilities of Patient in Care tsoummers 12:00 PM Learning barriers :None tsoummers 12:00 PM Education Methods Verbal tsoummers 12:00 PM Education evaluation Able to repeat information tsoummers 12:01 PM Site status No bleeding/hematoma - Lt Groin as reported by Lilian Blair RT (R) at 12:01 tsoummers 12:01 PM Opsite applied tsoummers 12:01 PM Plavix, Effient or Brilinta given No tsoummers 12:01 PM Delay to floor No tsoummers 12:01 PM Patient out of room: 12:01 tsoummers 12:01 PM Family placed in consult room. tsoummers 12:02 PM Complications: None tsoummers 12:03 PM HR=49 bpm, JLEL=127/79 mmhg, SpO2=98.0 %, Resp=18 B/min 12:08 PM Coronary Dominance: Co-dominant tsoummers 12:09 PM Left Main Coronary Artery with 0% stenosis tsoummers 12:09 PM Proximal Left Anterior Descending Coronary Artery with 100% stenosis. If graft is supplying this territory, 0 % stenosis. tsoummers 12:09 PM Mid/Distal Left Anterior Descending Coronary Artery and diagonal branches with 0% stenosis. If graft is supplying this area, 0 % stenosis tsoummers 12:09 PM Circumflex, Obtuse Marginal, Left Posterior Descending, and Left Posterolateral Coronary Arteries with 100 % stenosis. If graft is supplying this area, 0 % stenosis tsoummers 12:09 PM Right Coronary, Right Posterior Descending Arteries with Right Posterolateral and Acute Marginal branches with 100 % stenosis. If graft is supplying this area, 0 % stenosis tsoummers 12:09 PM Ramus with 0% stenosis. If graft is supplying this area, 0 % stenosis tsoummers 12:14 PM What is the NYHA Class? Class 3 tsoummers 12:18 PM Report given to RN Pt taken to 3A Room #31. 12:18 tsoummers Complications Complication None Hemodynamics Pressures Site Systolic/A Wave Diastolic/V Wave Mean AO 133 81 102 AO 112 79 95 AO 110 71 90 AO 107 73 89 LV 111 1 15 LV 112 6 20 AO 114 36 78 Post Procedure Information Blood Pressure: 124/71 mmHg Rhythm: Sinus Bradycardia Post procedural instructions were given Closure Device Time Device Success/Fail MynxGrip Successful Site Checks Time Location Status Staff Sheath In? Note 12:01 PM Lt Groin No bleeding/hematoma Lilian Blair RT (R) Pulses Time Site Pre-Procedure Post-Procedure Note Bilateral DP & PT 2+ Bilateral radial 2+ 12:00:00 PM Bilateral DP & PT 2+ Updated by Elin Marsh RN on 04/21/2018 12:22:38 PM electronically signed on 04/21/2018 12:23:56 PM with status of Final
--- NOTE | 2018-04-21 14:01 | Discharge Summary ---
- NOTES TO OUTPATIENT PROVIDER Notes to Outpatient Provider: Follow up with PCP in 2-3 days after discharge. Recheck BMP and CBC at that time. Follow up with cardiology in 2-3 weeks as directed. Orders not resulted at time of discharge: Pending orders 04/21/18 08:00 CL Cardiac Catheterization [CL] Routine Date of Encounter: 04/21/18 Time of Encounter: 13:56 - Discharge Diagnosis (1) Chest pain Priority: Primary Status: Resolved Qualifiers: Chest pain type: unspecified Qualified Code(s): R07.9 - Chest pain, unspecified (2) CAD (coronary artery disease) Priority: Secondary Status: Chronic Qualifiers: Coronary Disease-Associated Artery/Lesion type: unspecified vessel or lesion type [place] vs. transplanted heart: unspecified whether [place] or transplanted heart Associated angina: angina presence unspecified Qualified Code(s): I25.10 - Atherosclerotic heart disease of [place] coronary artery without angina pectoris (3) Afib Priority: Secondary Status: Chronic Qualifiers: Atrial fibrillation type: chronic Qualified Code(s): I48.2 - Chronic atrial fibrillation (4) HTN (hypertension) Priority: Secondary Status: Chronic Qualifiers: Hypertension type: essential hypertension Qualified Code(s): I10 - Essential (primary) hypertension (5) HLD (hyperlipidemia) Priority: Secondary Status: Chronic Qualifiers: Hyperlipidemia type: mixed hyperlipidemia Qualified Code(s): E78.2 - Mixed hyperlipidemia (6) Type 2 diabetes mellitus with peripheral neuropathy Priority: Secondary Status: Chronic (7) COPD (chronic obstructive pulmonary disease) Priority: Secondary Status: Chronic Qualifiers: COPD type: unspecified COPD Qualified Code(s): J44.9 - Chronic obstructive pulmonary disease, unspecified (8) SPIKE (obstructive sleep apnea) Priority: Secondary Status: Chronic (9) DVT prophylaxis Priority: Secondary Status: Acute Hospital course: Mr. Reyez is a 72 year old male with PMH of extensive CAD admitted for chest pain. Patient was admitted to general medical floor with telemetry. Home medications were continued. Nitro and morphine used PRN chest pain. Troponin peaked at 0.05. He experienced no chest pain since admission. ECHO showed LVEF 45%, mildly dilated LV, diastolic dysfunction with restricted filling pattern, mild-moderate mitral regurgitation, moderate tricuspid regurgitation, mild pulmonic regurgitation, and mild pulmonary hypertension. Cardiology was consulted. LHC was performed and no intervention warranted. Imdur was added to his home medication regimen. Cardiology will have him follow up in clinic in 2-3 weeks. He will follow up with PCP in 2-3 days after discharge. Repeat BMP and CBC can be checked at that time. Patient has met maximum benefit of this hospitalization and will be discharged home in stable condition. Discharge discussed with: patient, family, nurse - Time Spent with Patient Total time spent providing and/or coordinating discharge services: Greater than 30 minutes - Discharge Medications Prescriptions: Isosorbide MONOnitrate (24 HR) [Imdur] 30 mg PO DAILY 21 Days #21 tab.er.24h Home Medications: Albuterol Sulfate [Proair Hfa] 2 puff IH TID PRN 04/17/18 [History] Amiodarone [Cordarone] 200 mg PO DAILY 04/17/18 [History] Apixaban [Eliquis] 5 mg PO BID 04/17/18 [History] Aspirin 81 mg PO DAILY 04/17/18 [History] Budesonide/Formoterol 160/4.5 [Symbicort 160/4.5] 2 puff IH BIDR 04/17/18 [ History] Calcium Carbonate [Tums] 1,000 mg PO DAILY 04/17/18 [History] Carvedilol 6.25 mg PO BID 04/17/18 [History] Cyanocobalamin (B-12) [Vitamin B12] 1,000 mcg IM Q2W 04/17/18 [History] Fluticasone Propionate Nasal [Flonase] 50 mcg NS DAILY 04/17/18 [History] Insulin ASPART [Novolog Flexpen] 4 unit SQ 0900 04/17/18 [History] Insulin ASPART [Novolog Flexpen] 10 unit SQ 1200,1700 04/17/18 [History] Insulin Glargine,Hum.rec.anlog [Lantus Solostar] 35 unit SQ HS 04/17/18 [History ] Lisinopril [Zestril] 10 mg PO DAILY 04/17/18 [History] Melatonin 20 mg PO HS 04/17/18 [History] Metformin HCl [Glucophage] 1,000 mg PO BID 04/17/18 [History] Multivitamin [One Daily Multivitamin] 1 tab PO DAILY 04/17/18 [History] Nitroglycerin [Nitrostat] 0.4 mg SL Q5MIN 04/17/18 [History] Pregabalin [Lyrica] 150 mg PO BID 04/17/18 [History] Rosuvastatin [Crestor] 40 mg PO HS 04/17/18 [History] Isosorbide MONOnitrate (24 HR) [Imdur] 30 mg PO DAILY 21 Days #21 tab.er.24h [Rx] Allergies/Adverse Reactions: 3 Allergy/AdvReac Type Severity Reaction Status Date / Time No Known Allergies Allergy Verified 04/17/18 04:22 Date of admission: 04/19/18 16:13 Primary care physician: PCP NONE Consults: 04/17/18 08:40 Consult for Pharmacy Education [CONS] Stat Reason for Consult: Verify home medications. Please notify MD when this is completed. Thanks. Call Completed: No 04/17/18 09:16 Consult to Respiratory Therapy [CONS] Routine Reason for Consult: SPIKE, COPD. CPAP QHS. Call Completed: No 04/17/18 09:17 Consult to Case Management [CONS] Routine Comment: Needs new PCP and production hardener in area. Consult to Protective Officer [CONS] Routine Reason for SW Consult: Needs new PCP and production hardener in area. 04/18/18 08:02 Consult to Case Management [CONS] Stat Comment: Please find new PCP and production hardener in area. Consult to Protective Officer [CONS] Stat Reason for SW Consult: Please find new PCP and production hardener in area. 04/18/18 09:13 Consult to Cardiology [CONS] Routine Comment: Consulting Provider: Cardiology Kaylen Reason for Consult: Chest Pain/ACS, History CAD and AFib Call Completed: Yes Discharging clinician: Bj Mcpherson Anticipated date of discharge: 04/21/18 - Constitutional Vitals: Temp Pulse Resp BP Pulse Ox 97.4 F L 43 19 125/83 95 04/21/18 13:10 04/21/18 13:10 04/21/18 13:10 04/21/18 13:10 04/21/18 12:55 General appearance: Present: cooperative, A&O X 3, pleasant, no acute distress, obese, answers questions appropriately Exam: As per below. - Respiratory Respiratory exam: Present: CTAB. Absent: accessory muscle use, rales, rhonchi, wheezes Additional comments: Normal WOB - Cardiovascular Cardiovascular exam: Present: RRR, +S1, +S2. Absent: diastolic murmur, gallop, rubs, systolic murmur Additional comments: No BLE edema - GI/Abdominal GI/Abdominal exam: Present: normal bowel sounds, soft. Absent: distended, hepatomegaly, mass, splenomegaly, tenderness - Psychiatric Psychiatric exam: Present: normal affect, normal mood. Absent: agitated, anxious, depressed - Skin Skin exam: Present: dry, warm. Absent: cyanosis, erythema, rash - Patient Status Disposition: Home, Self-Care Condition: Good Functional capacity at discharge: independent ambulation Overall status at discharge: patient is back to baseline - Discharge Instructions Follow Up With: Markel Garcia MD [Partnered Physician] - 05/26/18 3:10 pm (Appointment with Dr. Garcia to establish a Primary Care Physician. Appointment is May 26 at 3:10 PM. A packet will be delivered within a week which will include the following: appointment card, map to office, list of things to bring ( insurance card, license, etc), medication form. If you need to cancel please give a 24 hour notice.) Kiet Victor, [Partnered Physician] - 05/20/18 11:30 am (Please arrive 10- 15 minutes early. Please bring your insurance card and current medication list. If you need to cancel please so do with a 24 hour notice. An appointment reminder card will be mailed to you prior to your appointment.) NONE,PCP [Primary Care Provider] - Additional Instructions: Follow up with PCP in 2-3 days after discharge. Recheck BMP and CBC at that time. Follow up with cardiology in 2-3 weeks as directed. - Diet and Activity Activity: resume usual activities as tolerated Diet: diabetic diet, low fat, low cholesterol, low salt diet, other (Cardiac Diet) - VTE Contraindication No Overlap Therapy: Admin of oral Factor Xa Inhibitor
[2018-04-21 16:03] VITALS: BP 115/75
[2018-04-21] MEDS: Fluticasone Propionate Nasal 50 MCG/SPRAY BOTTLE NS SCH (16:19)
== END 2018-04-21 17:43 | disposition home or self-care (01) | DRG 287 ==
LOC: 3ANU
PROVIDERS: ADMIT Family Medicine; ATTEND Family Medicine

== ENCOUNTER 2019-07-03 15:04 | Observation (INO) ==
[2019-07-03] MEDS ORDERED: *HR* Heparin 10,000 UNIT/10 ML VIAL ONE (15:10)
[2019-07-03] MEDS ORDERED: Heparin 1,000 UNITS/500 mL 0 ML ONE (15:10)
[2019-07-03] MEDS ORDERED: ISOVUE-370 200 ML INFUS..BTL ONE (15:10)
[2019-07-03] MEDS ORDERED: Nitroglycerin 1,000 MCG/10 ML VIAL IV ONE (15:11)
[2019-07-03 15:22] LABS: Basophils # 0.1 K/mcL (0.0-0.2); Basophils % 0.7 %; Eosinophils # 0.2 K/mcL (0.0-0.6); Hematocrit 38.2 % (37.5-50.1); Hemoglobin 12.7 g/dL (12.9-16.9); Immature Granulocytes % 0.6 % (0-4); Lymphocytes # 1.4 K/mcL (0.6-4.6); Lymphocytes % 17.2 %; Mean Corpuscular HGB Conc 33.2 g/dL (31.6-35.5); Mean Corpuscular Hemoglobin 25.9 pg (28.0-33.3); Mean Corpuscular Volume 77.8 fL (83.0-100.0); Mean Platelet Volume 9.4 fL (9.4-12.4); Monocytes # 1.1 K/mcL (0.0-1.3); Monocytes % 13.7 %; Neutrophils # 5.3 K/mcL (1.6-8.9); Platelet Count 186 K/mcL (140-400); Red Blood Count 4.91 M/mcL (4.19-5.50); Red Cell Distribution Width 17.2 % (11.5-14.5); Segmented Neutrophils % 65.8 %
[2019-07-03] MEDS ORDERED: 0.9 % Sodium Chloride 500 ML ONE ×2 (15:27→15:37)
[2019-07-03 15:31] LABS: INR 1.2; Prothrombin Time 14.1 Seconds (9.4-12.1)
[2019-07-03 15:33] LABS: Activated Partial Thrombo Time 29.9 Seconds (26.0-36.0)
[2019-07-03] MEDS ORDERED: *HR* Midazolam HCl 5 MG/ML VIAL ONE (15:39)
[2019-07-03] MEDS ORDERED: *HR* FentaNYL (PF) 100 MCG/2 ML VIAL ONE (15:40)
[2019-07-03 15:41] LABS: BUN/Creatinine Ratio 10 (6-26); Blood Urea Nitrogen 13 mg/dL (8-23); Calcium 8.5 mg/dL (8.6-10.3); Carbon Dioxide 19 mEq/L (23-29); Chloride 103 mEq/L (98-107); Glucose 140 mg/dL (70-105); Magnesium 1.7 mg/dL (1.6-2.6); Osmolality,Calculated 278 (280-300); Potassium 4.4 mEq/L (3.5-5.1); Sodium 133 mEq/L (136-145); eGFR For African Americans > 60 (> 60); eGFR For Non-African Americans 57 (> 60)
[2019-07-03 15:44] LABS: Troponin I < 0.03 ng/mL (< 0.04)
[2019-07-03] MEDS ORDERED: *HR* FentaNYL (PF) 100 MCG/2 ML VIAL IVP ONE (15:50)
[2019-07-03] MEDS ORDERED: *HR* Midazolam HCl 5 MG/ML VIAL IVP ONE (15:50)
[2019-07-03] MEDS ORDERED: Amiodarone Premix 360 MG/200 ML BAG IVC ONE (16:10)
[2019-07-03] MEDS ORDERED: 0.9 % Sodium Chloride 1,000 ML ONE (16:15)
[2019-07-03] MEDS ORDERED: traMADol 50 MG TABLET PO PRN (19:20)
[2019-07-03] MEDS ORDERED: *HR* Dextrose 50 % in Water (Syg) 50 ML SYRINGE IVP PRN (19:23)
[2019-07-03] MEDS ORDERED: Dextrose Gel 15 GM/37.5 ML TUBE PO PRN ×2 (19:23)
[2019-07-03] MEDS ORDERED: Nitroglycerin 0.4 MG TAB.SUBL SL PRN (19:30)
[2019-07-03] MEDS ORDERED: Insulin DETEMIR 100 UNIT/ML X5UNITS SQ SCH (21:00)
[2019-07-03] MEDS: Budesonide/Formoterol 160/4.5 1 PUFF INH IH SCH (21:12)
[2019-07-03] MEDS: Pregabalin 75 MG CAPSULE PO SCH (21:54)
[2019-07-03] MEDS: Apixaban 5 MG TABLET PO SCH (21:54)
[2019-07-03] MEDS: Insulin DETEMIR 100 UNIT/ML X5UNITS SQ SCH (22:01)
[2019-07-03] MEDS: Fluticasone Propionate Nasal 50 MCG/SPRAY BOTTLE NS SCH (22:02)
[2019-07-03] MEDS: Insulin LISPRO 300 UNITS/3 ML VIAL SQ SCH (22:06)
[2019-07-03] MEDS: Amiodarone Premix 360 MG/200 ML BAG IVC SCH (23:55)
[2019-07-04 01:55] LABS: Basophils % 0.6 %; Eosinophils # 0.2 K/mcL (0.0-0.6); Eosinophils % 2.5 %; Hematocrit 38.2 % (37.5-50.1); Immature Granulocytes % 0.4 % (0-4); Lymphocytes # 1.4 K/mcL (0.6-4.6); Lymphocytes % 19.2 %; Mean Corpuscular HGB Conc 31.4 g/dL (31.6-35.5); Mean Corpuscular Hemoglobin 25.5 pg (28.0-33.3); Mean Corpuscular Volume 81.3 fL (83.0-100.0); Mean Platelet Volume 9.6 fL (9.4-12.4); Monocytes # 0.9 K/mcL (0.0-1.3); Monocytes % 12.2 %; Neutrophils # 4.7 K/mcL (1.6-8.9); Platelet Count 166 K/mcL (140-400); Red Cell Distribution Width 16.9 % (11.5-14.5); Segmented Neutrophils % 65.1 %; White Blood Count 7.2 K/mcL (4.3-11.1)
[2019-07-04 02:14] LABS: BUN/Creatinine Ratio 10 (6-26); Blood Urea Nitrogen 12 mg/dL (8-23); Calcium 8.4 mg/dL (8.6-10.3); Carbon Dioxide 24 mEq/L (23-29); Chloride 101 mEq/L (98-107); Glucose 214 mg/dL (70-105); Osmolality,Calculated 282 (280-300); Potassium 4.1 mEq/L (3.5-5.1); Sodium 133 mEq/L (136-145); eGFR For African Americans > 60 (> 60); eGFR For Non-African Americans 57 (> 60)
[2019-07-04] MEDS: *HR* OxyCODONE/APAP 10/325 TABLET PO PRN ×2 (05:46→22:16)
[2019-07-04] MEDS ORDERED: *HR* Amiodarone 200 MG TABLET PO SCH (18:00)
[2019-07-04] MEDS ORDERED: Ipratropium/Albuterol Neb 3 ML IH PRN (20:13)
[2019-07-04] MEDS: Budesonide/Formoterol 160/4.5 1 PUFF INH IH SCH (21:45)
[2019-07-04] MEDS: Insulin LISPRO 300 UNITS/3 ML VIAL SQ SCH ×4 (21:53→22:05)
[2019-07-04] MEDS: Aspirin 81 MG TAB.CHEW PO SCH (21:54)
[2019-07-04] MEDS: Fluticasone Propionate Nasal 50 MCG/SPRAY BOTTLE NS SCH ×2 (21:54→22:18)
[2019-07-04] MEDS: Pregabalin 75 MG CAPSULE PO SCH ×2 (21:54→22:16)
[2019-07-04] MEDS: Apixaban 5 MG TABLET PO SCH ×2 (21:54→22:17)
[2019-07-04] MEDS: Multivit/Ca/Min/Fe/FA 1 TAB TABLET PO SCH (21:55)
[2019-07-04] MEDS: Insulin DETEMIR 100 UNIT/ML X5UNITS SQ SCH (22:38)
[2019-07-05] MEDS: Amiodarone Premix 360 MG/200 ML BAG IVC SCH (00:31)
[2019-07-05] MEDS: Insulin LISPRO 300 UNITS/3 ML VIAL SQ SCH ×4 (07:37→21:55)
[2019-07-05] MEDS: Multivit/Ca/Min/Fe/FA 1 TAB TABLET PO SCH (07:37)
[2019-07-05] MEDS: *HR* OxyCODONE/APAP 10/325 TABLET PO PRN ×3 (07:37→21:55)
[2019-07-05] MEDS: Pregabalin 75 MG CAPSULE PO SCH ×2 (07:37→21:54)
[2019-07-05] MEDS: Aspirin 81 MG TAB.CHEW PO SCH (07:37)
[2019-07-05] MEDS: Apixaban 5 MG TABLET PO SCH ×2 (07:37→21:54)
[2019-07-05] MEDS: Fluticasone Propionate Nasal 50 MCG/SPRAY BOTTLE NS SCH (07:38)
[2019-07-05 08:08] LABS: Basophils # 0.1 K/mcL (0.0-0.2); Basophils % 0.6 %; Eosinophils # 0.3 K/mcL (0.0-0.6); Eosinophils % 4.1 %; Hematocrit 42.7 % (37.5-50.1); Immature Granulocytes % 0.5 % (0-4); Lymphocytes # 1.2 K/mcL (0.6-4.6); Lymphocytes % 15.3 %; Mean Corpuscular HGB Conc 31.9 g/dL (31.6-35.5); Mean Corpuscular Hemoglobin 25.4 pg (28.0-33.3); Mean Corpuscular Volume 79.7 fL (83.0-100.0); Mean Platelet Volume 9.7 fL (9.4-12.4); Monocytes # 1.1 K/mcL (0.0-1.3); Monocytes % 13.3 %; Neutrophils # 5.3 K/mcL (1.6-8.9); Platelet Count 167 K/mcL (140-400); Red Blood Count 5.36 M/mcL (4.19-5.50); Red Cell Distribution Width 17.6 % (11.5-14.5); Segmented Neutrophils % 66.2 %
[2019-07-05] MEDS: Budesonide/Formoterol 160/4.5 1 PUFF INH IH SCH ×3 (08:08→19:51)
[2019-07-05 08:09] LABS: Hemoglobin 13.6 g/dL (12.9-16.9)
[2019-07-05 08:27] LABS: Alanine Aminotransferase 41 Units/L (7-52); Albumin 4.3 g/dL (3.5-5.7); Albumin/Globulin Ratio 1.9 (1.1-2.2); Alkaline Phosphatase 47 Units/L (34-104); Aspartate Amino Transferase 29 Units/L (13-39); BUN/Creatinine Ratio 13 (6-26); Blood Urea Nitrogen 15 mg/dL (8-23); Carbon Dioxide 26 mEq/L (23-29); Chloride 98 mEq/L (98-107); Globulin 2.3 g/dL (2.4-3.5); Glucose 151 mg/dL (70-105); Magnesium 1.9 mg/dL (1.6-2.6); Osmolality,Calculated 280 (280-300); Potassium 4.3 mEq/L (3.5-5.1); Sodium 133 mEq/L (136-145); Total Protein 6.6 g/dL (6.4-8.9); eGFR For African Americans > 60 (> 60); eGFR For Non-African Americans > 60 (> 60)
[2019-07-05] MEDS ORDERED: *HR* Amiodarone 200 MG TABLET PO SCH (18:00)
[2019-07-05] MEDS: Insulin DETEMIR 100 UNIT/ML X5UNITS SQ SCH (21:55)
[2019-07-06 04:02] LABS: Basophils # 0.1 K/mcL (0.0-0.2); Basophils % 0.7 %; Eosinophils # 0.4 K/mcL (0.0-0.6); Eosinophils % 4.9 %; Hematocrit 38.1 % (37.5-50.1); Hemoglobin 12.5 g/dL (12.9-16.9); Immature Granulocytes % 0.5 % (0-4); Lymphocytes # 1.6 K/mcL (0.6-4.6); Mean Corpuscular HGB Conc 32.8 g/dL (31.6-35.5); Mean Corpuscular Hemoglobin 25.5 pg (28.0-33.3); Mean Corpuscular Volume 77.6 fL (83.0-100.0); Mean Platelet Volume 10.1 fL (9.4-12.4); Monocytes % 12.9 %; Neutrophils # 4.4 K/mcL (1.6-8.9); Platelet Count 178 K/mcL (140-400); Red Blood Count 4.91 M/mcL (4.19-5.50); Red Cell Distribution Width 17.3 % (11.5-14.5); White Blood Count 7.4 K/mcL (4.3-11.1)
[2019-07-06 04:18] LABS: BUN/Creatinine Ratio 17 (6-26); Blood Urea Nitrogen 23 mg/dL (8-23); Calcium 8.7 mg/dL (8.6-10.3); Carbon Dioxide 28 mEq/L (23-29); Chloride 99 mEq/L (98-107); Glucose 161 mg/dL (70-105); Magnesium 1.9 mg/dL (1.6-2.6); Osmolality,Calculated 283 (280-300); Potassium 3.9 mEq/L (3.5-5.1); Sodium 133 mEq/L (136-145); eGFR For African Americans > 60 (> 60); eGFR For Non-African Americans 52 (> 60)
[2019-07-06] MEDS: Fluticasone Propionate Nasal 50 MCG/SPRAY BOTTLE NS SCH ×2 (04:49→07:45)
[2019-07-06] MEDS: Budesonide/Formoterol 160/4.5 1 PUFF INH IH SCH (07:19)
[2019-07-06] MEDS: Insulin LISPRO 300 UNITS/3 ML VIAL SQ SCH ×2 (07:42→11:55)
[2019-07-06] MEDS: Multivit/Ca/Min/Fe/FA 1 TAB TABLET PO SCH (07:44)
[2019-07-06] MEDS: Aspirin 81 MG TAB.CHEW PO SCH (07:44)
[2019-07-06] MEDS: Pregabalin 75 MG CAPSULE PO SCH (07:44)
[2019-07-06] MEDS: Apixaban 5 MG TABLET PO SCH (07:44)
[2019-07-06 09:26] LABS: Estimated Average Glucose 180 mg/dl
[2019-07-06 11:13] VITALS: BP 117/63
== END 2019-07-06 13:36 | disposition home or self-care (01) ==
LOC: CDU 15:04 → EMEROOARM 15:04 → SUATTDRO 17:50 → CDU 18:28 → 2NNU 07-04 18:30
PROVIDERS: ADMIT Student in an Organized Health Care Education/Training Program; ATTEND Pharmacist

== ENCOUNTER 2020-05-14 14:09 | Inpatient (IN) ==
[2020-05-14] MEDS ORDERED: Acetaminophen 325 MG TABLET PO PRN (16:48)
[2020-05-14] MEDS ORDERED: Naloxone 0.4 MG/ML INJ IVP PRN (16:48)
[2020-05-14] MEDS ORDERED: Amiodarone Premix 360 MG/200 ML BAG IVC ONE (16:49)
[2020-05-14] MEDS: Amiodarone Premix 360 MG/200 ML BAG IVC SCH (17:15)
[2020-05-14] MEDS ORDERED: *HR* Digoxin 0.5 MG/2 ML AMPUL IVP ONE (17:31)
[2020-05-14 17:44] LABS: Magnesium 1.9 mg/dL (1.6-2.6)
[2020-05-14] MEDS ORDERED: Isovue-370 500 ML BOTTLE IVP ONE ×2 (17:48→18:04)
[2020-05-14] MEDS ORDERED: *HR* Metoprolol 5 MG/5 ML VIAL IVP ONE (17:50)
[2020-05-14] MEDS ORDERED: Morphine Sulfate 2 MG/ML SYRINGE IVP ONE (17:56)
[2020-05-14 17:58] LABS: Troponin I 0.22 ng/mL (< 0.04)
[2020-05-14] MEDS ORDERED: 0.9 % Sodium Chloride 1,000 ML ONE (18:03)
[2020-05-14] MEDS ORDERED: Perflutren Lipid Microsphere 1.3 ML in 0.9 % Sodium Chloride 8.7 ML IVP PRN (18:44)
[2020-05-14] MEDS ORDERED: Morphine Sulfate 2 MG/ML SYRINGE IVP PRN (18:47)
[2020-05-14] MEDS ORDERED: D5% in Water 1,000 ML IVC PRN (18:55)
[2020-05-14] MEDS ORDERED: Ibuprofen 400 MG TABLET PO PRN (18:55)
[2020-05-14] MEDS ORDERED: Dextrose Gel 15 GM/37.5 ML TUBE PO PRN ×2 (18:55)
[2020-05-14] MEDS ORDERED: *HR* Dextrose 50 % in Water (Vial) 50 ML VIAL IVP PRN (18:55)
[2020-05-14 19:44] LABS: Estimated Average Glucose 171 mg/dl
[2020-05-14] MEDS ORDERED: Insulin LISPRO 300 UNITS/3 ML VIAL SQ SCH (21:00)
[2020-05-14] MEDS ORDERED: *HR* FentaNYL (PF) 100 MCG/2 ML VIAL IVP STA (21:49)
[2020-05-14] MEDS ORDERED: *HR* Midazolam HCl 2 MG/2 ML VIAL IVP STA (21:49)
[2020-05-14] MEDS: Apixaban 5 MG TABLET PO SCH (23:15)
[2020-05-14] MEDS: Pregabalin 75 MG CAPSULE PO SCH (23:15)
[2020-05-15 03:03] LABS: Basophils % 0.4 %; Eosinophils # 0.1 K/mcL (0.0-0.6); Eosinophils % 1.1 %; Hematocrit 36.4 % (37.5-50.1); Hemoglobin 10.8 g/dL (12.9-16.9); Immature Granulocytes % 0.6 % (0-4); Lymphocytes # 1.3 K/mcL (0.6-4.6); Lymphocytes % 15.1 %; Mean Corpuscular HGB Conc 29.7 g/dL (31.6-35.5); Mean Corpuscular Hemoglobin 22.2 pg (28.0-33.3); Mean Corpuscular Volume 74.9 fL (83.0-100.0); Mean Platelet Volume 9.9 fL (9.4-12.4); Monocytes % 12.4 %; Neutrophils # 5.9 K/mcL (1.6-8.9); Platelet Count 183 K/mcL (140-400); Red Blood Count 4.86 M/mcL (4.19-5.50); Red Cell Distribution Width 18.6 % (11.5-14.5); Segmented Neutrophils % 70.4 %; White Blood Count 8.3 K/mcL (4.3-11.1)
[2020-05-15 03:35] LABS: BUN/Creatinine Ratio 11 (6-26); Blood Urea Nitrogen 14 mg/dL (8-23); Calcium 8.5 mg/dL (8.6-10.3); Carbon Dioxide 22 mEq/L (23-29); Chloride 102 mEq/L (98-107); Glucose 149 mg/dL (70-105); Magnesium 1.9 mg/dL (1.6-2.6); Osmolality,Calculated 279 (280-300); Potassium 4.8 mEq/L (3.5-5.1); Sodium 133 mEq/L (136-145); eGFR For African Americans > 60 (> 60); eGFR For Non-African Americans 58 (> 60)
[2020-05-15] MEDS: Amiodarone Premix 360 MG/200 ML BAG IVC SCH (05:39)
[2020-05-15] MEDS: Apixaban 5 MG TABLET PO SCH ×2 (07:16→20:12)
[2020-05-15] MEDS: Pregabalin 75 MG CAPSULE PO SCH ×2 (07:16→20:11)
[2020-05-15] MEDS ORDERED: Insulin LISPRO 300 UNITS/3 ML VIAL SQ SCH (07:30)
[2020-05-15] MEDS ORDERED: carvediloL 6.25 MG TABLET PO SCH (08:00)
[2020-05-15] MEDS ORDERED: Aspirin 81 MG TAB.CHEW PO SCH (09:00)
[2020-05-15] MEDS ORDERED: lisinopriL 10 MG TABLET PO SCH (09:00)
[2020-05-15] MEDS ORDERED: Multivit/Ca/Min/Fe/FA 1 TAB TABLET PO SCH (09:00)
[2020-05-15] MEDS ORDERED: Budesonide/Formoterol 160/4.5 1 PUFF INH IH SCH (10:00)
[2020-05-15] MEDS ORDERED: Ibuprofen 400 MG TABLET PO PRN (10:55)
[2020-05-15] MEDS ORDERED: D5% in Water 1,000 ML IVC PRN (10:55)
[2020-05-15] MEDS ORDERED: Acetaminophen 325 MG TABLET PO PRN (10:55)
[2020-05-15] MEDS ORDERED: Morphine Sulfate 2 MG/ML SYRINGE IVP PRN (10:55)
[2020-05-15] MEDS ORDERED: Naloxone 0.4 MG/ML INJ IVP PRN (10:55)
[2020-05-15] MEDS ORDERED: Amiodarone Premix 360 MG/200 ML BAG IVC SCH (10:55)
[2020-05-15] MEDS ORDERED: Dextrose Gel 15 GM/37.5 ML TUBE PO PRN ×2 (10:55)
[2020-05-15] MEDS ORDERED: *HR* Dextrose 50 % in Water (Vial) 50 ML VIAL IVP PRN (10:55)
[2020-05-15] MEDS: Insulin LISPRO 300 UNITS/3 ML VIAL SQ SCH ×3 (12:13→21:51)
[2020-05-15] MEDS: carvediloL 6.25 MG TABLET PO SCH (16:28)
[2020-05-15] MEDS ORDERED: Furosemide 20 MG/2 ML VIAL IVP ONE (17:19)
[2020-05-15] MEDS ORDERED: *HR* Amiodarone 200 MG TABLET PO SCH (18:00)
[2020-05-15] MEDS: Budesonide/Formoterol 160/4.5 1 PUFF INH IH SCH (19:52)
[2020-05-16] MEDS: Budesonide/Formoterol 160/4.5 1 PUFF INH IH SCH ×2 (07:17→20:01)
[2020-05-16] MEDS: Pregabalin 75 MG CAPSULE PO SCH ×2 (07:24→21:11)
[2020-05-16] MEDS: Apixaban 5 MG TABLET PO SCH ×2 (07:24→21:11)
[2020-05-16] MEDS: Aspirin 81 MG TAB.CHEW PO SCH (07:24)
[2020-05-16] MEDS: Multivit/Ca/Min/Fe/FA 1 TAB TABLET PO SCH (07:24)
[2020-05-16] MEDS: carvediloL 6.25 MG TABLET PO SCH ×2 (07:25→17:03)
[2020-05-16] MEDS: Insulin LISPRO 300 UNITS/3 ML VIAL SQ SCH ×4 (07:27→21:12)
[2020-05-16 07:51] LABS: Hematocrit 38.2 % (37.5-50.1); Hemoglobin 11.8 g/dL (12.9-16.9); Mean Corpuscular HGB Conc 30.9 g/dL (31.6-35.5); Mean Corpuscular Hemoglobin 22.2 pg (28.0-33.3); Mean Corpuscular Volume 71.9 fL (83.0-100.0); Mean Platelet Volume 10.1 fL (9.4-12.4); Platelet Count 206 K/mcL (140-400); Red Blood Count 5.31 M/mcL (4.19-5.50); Red Cell Distribution Width 18.4 % (11.5-14.5)
[2020-05-16] MEDS ORDERED: Furosemide 20 MG TABLET PO SCH (09:00)
[2020-05-16] MEDS ORDERED: lisinopriL 10 MG TABLET PO SCH (09:00)
[2020-05-16] MEDS: *HR* Amiodarone 200 MG TABLET PO SCH ×2 (11:16→21:11)
[2020-05-16 11:58] LABS: Troponin I 0.81 ng/mL (< 0.04)
[2020-05-16 17:06] LABS: Calcium 8.9 mg/dL (8.6-10.3); Magnesium 1.9 mg/dL (1.6-2.6); Potassium 4.4 mEq/L (3.5-5.1)
[2020-05-17 05:54] LABS: Calcium 8.7 mg/dL (8.6-10.3); Magnesium 1.9 mg/dL (1.6-2.6); Potassium 4.1 mEq/L (3.5-5.1)
[2020-05-17] MEDS: Pregabalin 75 MG CAPSULE PO SCH ×2 (07:48→21:03)
[2020-05-17] MEDS: carvediloL 6.25 MG TABLET PO SCH ×2 (07:48→16:55)
[2020-05-17] MEDS: Apixaban 5 MG TABLET PO SCH (07:49)
[2020-05-17] MEDS: Multivit/Ca/Min/Fe/FA 1 TAB TABLET PO SCH (07:49)
[2020-05-17] MEDS: *HR* Amiodarone 200 MG TABLET PO SCH ×2 (07:49→21:03)
[2020-05-17] MEDS: Aspirin 81 MG TAB.CHEW PO SCH (07:49)
[2020-05-17] MEDS: Insulin LISPRO 300 UNITS/3 ML VIAL SQ SCH ×4 (07:49→20:58)
[2020-05-17] MEDS: Budesonide/Formoterol 160/4.5 1 PUFF INH IH SCH ×2 (07:57→19:59)
[2020-05-17] MEDS ORDERED: *HR* Heparin 5,000 UNIT/ML VIAL IVP ONE (23:32)
[2020-05-17] MEDS ORDERED: *HR* Heparin 5,000 UNIT/ML VIAL IVP PRN ×2 (23:32)
[2020-05-17] MEDS ORDERED: Heparin 25,000UNIT/250ML 1/2NS 25,000 UNIT/250 ML IV.SOLN IVC SCH (23:45)
[2020-05-18] MEDS: Heparin 25,000UNIT/250ML 1/2NS 25,000 UNIT/250 ML IV.SOLN IVC SCH ×2 (00:07→20:41)
[2020-05-18 00:40] LABS: Magnesium 1.8 mg/dL (1.6-2.6); Potassium 4.2 mEq/L (3.5-5.1)
[2020-05-18] MEDS: Insulin LISPRO 300 UNITS/3 ML VIAL SQ SCH ×4 (07:21→20:37)
[2020-05-18] MEDS: carvediloL 6.25 MG TABLET PO SCH ×3 (07:21→16:40)
[2020-05-18] MEDS: Multivit/Ca/Min/Fe/FA 1 TAB TABLET PO SCH (08:37)
[2020-05-18] MEDS: *HR* Amiodarone 200 MG TABLET PO SCH ×2 (08:46→20:41)
[2020-05-18] MEDS: Aspirin 81 MG TAB.CHEW PO SCH (08:46)
[2020-05-18] MEDS: Pregabalin 75 MG CAPSULE PO SCH ×2 (08:46→20:41)
[2020-05-18] MEDS: Budesonide/Formoterol 160/4.5 1 PUFF INH IH SCH ×2 (10:27→19:47)
[2020-05-18] MEDS: Apixaban 5 MG TABLET PO SCH (20:36)
[2020-05-19 05:57] LABS: Hematocrit 39.8 % (37.5-50.1); Hemoglobin 12.3 g/dL (12.9-16.9)
[2020-05-19 06:08] LABS: BUN/Creatinine Ratio 15 (6-26); Blood Urea Nitrogen 21 mg/dL (8-23); Calcium 9.1 mg/dL (8.6-10.3); Carbon Dioxide 25 mEq/L (23-29); Chloride 97 mEq/L (98-107); Glucose 149 mg/dL (70-105); Osmolality,Calculated 278 (280-300); Sodium 131 mEq/L (136-145); eGFR For African Americans > 60 (> 60); eGFR For Non-African Americans 51 (> 60)
[2020-05-19] MEDS: Budesonide/Formoterol 160/4.5 1 PUFF INH IH SCH (07:30)
[2020-05-19] MEDS: Insulin LISPRO 300 UNITS/3 ML VIAL SQ SCH ×3 (08:38→17:36)
[2020-05-19] MEDS: Apixaban 5 MG TABLET PO SCH (08:40)
[2020-05-19] MEDS: Multivit/Ca/Min/Fe/FA 1 TAB TABLET PO SCH (08:40)
[2020-05-19] MEDS: carvediloL 6.25 MG TABLET PO SCH ×2 (08:41→17:49)
[2020-05-19] MEDS: Aspirin 81 MG TAB.CHEW PO SCH (08:42)
[2020-05-19] MEDS: Pregabalin 75 MG CAPSULE PO SCH (08:42)
[2020-05-19] MEDS: *HR* Amiodarone 200 MG TABLET PO SCH (08:42)
[2020-05-19] MEDS ORDERED: *HR* Midazolam HCl 2 MG/2 ML VIAL ONE ×2 (10:17→13:27)
[2020-05-19] MEDS ORDERED: *HR* FentaNYL (PF) 100 MCG/2 ML VIAL ONE ×2 (10:18→13:28)
[2020-05-19] MEDS ORDERED: Nitroglycerin 1,000 MCG/10 ML VIAL IV ONE ×2 (10:18→13:15)
[2020-05-19] MEDS ORDERED: 0.9 % Sodium Chloride 2,000 ML ONE (10:18)
[2020-05-19] MEDS ORDERED: ISOVUE-370 200 ML INFUS..BTL ONE ×2 (10:18→13:15)
[2020-05-19] MEDS ORDERED: *HR* Heparin 10,000 UNIT/10 ML VIAL ONE ×2 (10:18→13:15)
[2020-05-19] MEDS ORDERED: Heparin 1,000 UNITS/500 mL 500 ML ONE ×2 (10:18→13:14)
[2020-05-19] MEDS ORDERED: 0.9 % Sodium Chloride 1,000 ML ONE (13:14)
[2020-05-19 18:48] VITALS: BP 115/75
== END 2020-05-19 19:23 | disposition home or self-care (01) | DRG 287 ==
LOC: 2NNU → SUATTDRO 16:21 → ICNU 19:20 → 2ANU 05-15 19:44 → SUATTDRO 05-16 14:09
PROVIDERS: ADMIT Internal Medicine; ATTEND Family Medicine

== ENCOUNTER 2021-05-06 14:49 | Inpatient (IN) ==
[2021-05-06 16:44] LABS: Basophils % 0.3 %; Eosinophils % 0.3 %; Hematocrit 36.1 % (37.5-50.1); Hemoglobin 12.1 g/dL (12.9-16.9); Immature Granulocytes % 1.1 % (0-4); Lymphocytes # 0.7 K/mcL (0.6-4.6); Lymphocytes % 5.7 %; Mean Corpuscular HGB Conc 33.5 g/dL (31.6-35.5); Mean Corpuscular Hemoglobin 27.2 pg (28.0-33.3); Mean Corpuscular Volume 81.1 fL (83.0-100.0); Mean Platelet Volume 9.8 fL (9.4-12.4); Monocytes # 1.1 K/mcL (0.0-1.3); Platelet Count 231 K/mcL (140-400); Red Blood Count 4.45 M/mcL (4.19-5.50); Red Cell Distribution Width 17.2 % (11.5-14.5); Segmented Neutrophils % 83.6 %; White Blood Count 11.9 K/mcL (4.3-11.1)
[2021-05-06 16:51] LABS: INR 2.6; Prothrombin Time 29.2 Seconds (9.4-12.1)
[2021-05-06 16:54] LABS: Activated Partial Thrombo Time 35.8 Seconds (26.0-36.0)
[2021-05-06 17:06] LABS: Albumin 3.3 g/dL (3.5-5.7); Albumin/Globulin Ratio 1.1 (1.1-2.2); Bilirubin,Total 1.2 mg/dL (0.3-1.0); Calcium 8.8 mg/dL (8.6-10.3); Globulin 2.9 g/dL (2.4-3.5); Magnesium 1.7 mg/dL (1.6-2.6); Potassium 4.6 mEq/L (3.5-5.1); Total Protein 6.2 g/dL (6.4-8.9); Troponin I 0.03 ng/mL (< 0.04)
[2021-05-06 18:07] LABS: Bilirubin,Urine Negative (Negative); Blood,Urine Small (Negative); Clarity,Urine Turbid (Clear); Color,Urine Yellow (Yellow); Glucose,Urine (UA) Normal (Normal); Ketones,Urine Negative (Negative); Leukocyte Esterase,Urine Negative (Negative); Mucus,Urine Few per lpf (None-Few); Nitrite,Urine Negative (Negative); PH,Urine 5.5 pH Units (5.0-8.0); Protein,Urine 100 mg/dL (Neg-Trace); Specific Gravity,Urine 1.021 (1.010-1.025); Urobilinogen,Urine Normal (Normal)
[2021-05-06] MEDS ORDERED: *HR* OxyCODONE Immed Rel 5 MG TABLET PO STA (18:16)
[2021-05-06] MEDS ORDERED: Naloxone 0.4 MG/ML INJ IVP PRN (18:32)
[2021-05-06] MEDS ORDERED: Ondansetron 4 MG/2 ML VIAL IVP PRN (18:32)
[2021-05-06 18:34] LABS: Amphetamine Screen,Urine Negative ng/mL (Cutoff=1000); Barbiturate Screen,Urine Negative ng/mL (Cutoff=200); Benzodiazepines Screen,Urine Negative ng/mL (Cutoff=200); Cannabinoid Screen,Urine Negative ng/mL (Cutoff = 50); Cocaine Screen,Urine Negative ng/mL (Cutoff= 300); Opiate Screen,Urine Positive ng/mL (Cutoff=300); Phencyclidine Screen,Urine Negative ng/mL (Cutoff=25)
[2021-05-06] MEDS ORDERED: Dextrose Gel 15 GM/37.5 ML TUBE PO PRN ×2 (18:37)
[2021-05-06] MEDS ORDERED: *HR* Dextrose 50 % in Water (Vial) 50 ML VIAL IVP PRN (18:37)
[2021-05-06] MEDS ORDERED: D5% in Water 1,000 ML IVC PRN (18:37)
[2021-05-06] MEDS: Budesonide/Formoterol 160/4.5 1 PUFF INH IH SCH (20:03)
[2021-05-06] MEDS: *HR* HYDROcodone/Acet 5/325 mg TABLET PO PRN (22:27)
[2021-05-06] MEDS: Apixaban 5 MG TABLET PO SCH (22:27)
[2021-05-06] MEDS: 0.9 % Sodium Chloride 1,000 ML IVC SCH (22:28)
[2021-05-07 03:10] LABS: Albumin/Globulin Ratio 1.2 (1.1-2.2); Bilirubin,Total 1.2 mg/dL (0.3-1.0); Calcium 8.3 mg/dL (8.6-10.3); Globulin 2.5 g/dL (2.4-3.5); Magnesium 1.5 mg/dL (1.6-2.6); Potassium 4.3 mEq/L (3.5-5.1); Total Protein 5.5 g/dL (6.4-8.9)
[2021-05-07] MEDS: Insulin LISPRO 300 UNITS/3 ML VIAL SUBQ SCH ×5 (03:31→21:32)
[2021-05-07] MEDS: Budesonide/Formoterol 160/4.5 1 PUFF INH IH SCH ×2 (07:56→19:55)
[2021-05-07 08:08] LABS: Basophils % 0.2 %; Eosinophils % 0.3 %; Hematocrit 33.2 % (37.5-50.1); Hemoglobin 11.4 g/dL (12.9-16.9); Immature Granulocytes % 0.9 % (0-4); Lymphocytes # 0.6 K/mcL (0.6-4.6); Lymphocytes % 4.2 %; Mean Corpuscular HGB Conc 34.3 g/dL (31.6-35.5); Mean Corpuscular Hemoglobin 27.1 pg (28.0-33.3); Mean Platelet Volume 9.7 fL (9.4-12.4); Monocytes # 1.2 K/mcL (0.0-1.3); Monocytes % 9.2 %; Neutrophils # 11.1 K/mcL (1.6-8.9); Platelet Count 226 K/mcL (140-400); Red Cell Distribution Width 16.9 % (11.5-14.5); Segmented Neutrophils % 85.2 %
[2021-05-07] MEDS: 0.9 % Sodium Chloride 1,000 ML IVC SCH (09:35)
[2021-05-07] MEDS: Aspirin 81 MG TAB.CHEW PO SCH (09:36)
[2021-05-07] MEDS: *HR* Amiodarone 200 MG TABLET PO SCH (09:36)
[2021-05-07] MEDS: polyethylene glycoL 3350 17 GM POWD.PACK PO SCH (09:37)
[2021-05-07] MEDS: Apixaban 5 MG TABLET PO SCH ×2 (09:37→21:31)
[2021-05-07 13:28] LABS: Potassium,Urine 32.1 mEq/L; Sodium, Urine 57.1 mEq/L
[2021-05-07] MEDS: *HR* HYDROcodone/Acet 5/325 mg TABLET PO PRN (14:46)
[2021-05-07 15:05] LABS: Calcium 8.1 mg/dL (8.6-10.3); Potassium 4.3 mEq/L (3.5-5.1)
[2021-05-07] MEDS ORDERED: QUEtiapine Fumarate 25 MG TABLET PO SCH (21:00)
[2021-05-07] MEDS: Fluticasone Propionate Nasal 50 MCG/SPRAY BOTTLE NS SCH (21:31)
[2021-05-07] MEDS: Pregabalin 75 MG CAPSULE PO SCH (21:31)
[2021-05-08] MEDS: Budesonide/Formoterol 160/4.5 1 PUFF INH IH SCH ×2 (07:43→20:04)
[2021-05-08 08:34] LABS: Albumin 3.3 g/dL (3.5-5.7); Albumin/Globulin Ratio 1.2 (1.1-2.2); Bilirubin,Total 1.8 mg/dL (0.3-1.0); Calcium 8.7 mg/dL (8.6-10.3); Globulin 2.8 g/dL (2.4-3.5); Total Protein 6.1 g/dL (6.4-8.9)
[2021-05-08] MEDS: *HR* Amiodarone 200 MG TABLET PO SCH ×2 (09:03→13:04)
[2021-05-08] MEDS: polyethylene glycoL 3350 17 GM POWD.PACK PO SCH (09:13)
[2021-05-08] MEDS: Cholecalciferol (D-3) 1,000 UNIT (25MCG) TABLET PO SCH (09:13)
[2021-05-08] MEDS: Pregabalin 75 MG CAPSULE PO SCH ×2 (09:14→21:21)
[2021-05-08] MEDS: Apixaban 5 MG TABLET PO SCH ×2 (09:14→21:21)
[2021-05-08] MEDS: Cyanocobalamin (B-12) 1,000 MCG TABLET PO SCH (09:14)
[2021-05-08] MEDS: Aspirin 81 MG TAB.CHEW PO SCH (09:14)
[2021-05-08] MEDS: Insulin LISPRO 300 UNITS/3 ML VIAL SUBQ SCH ×5 (09:15→21:22)
[2021-05-08] MEDS: Fluticasone Propionate Nasal 50 MCG/SPRAY BOTTLE NS SCH ×2 (09:25→21:35)
[2021-05-08 10:40] LABS: Calcium 8.5 mg/dL (8.6-10.3)
[2021-05-08] MEDS: 0.9 % Sodium Chloride 1,000 ML IVC SCH (12:10)
[2021-05-08 12:23] LABS: Complement C3 180 mg/dL (87-200)
[2021-05-08 13:04] LABS: Basophils % 0.3 %; Eosinophils # 0.1 K/mcL (0.0-0.6); Eosinophils % 0.4 %; Hematocrit 34.5 % (37.5-50.1); Hemoglobin 11.8 g/dL (12.9-16.9); Immature Granulocytes % 0.9 % (0-4); Lymphocytes # 0.6 K/mcL (0.6-4.6); Lymphocytes % 4.3 %; Mean Corpuscular HGB Conc 34.2 g/dL (31.6-35.5); Mean Corpuscular Hemoglobin 27.2 pg (28.0-33.3); Mean Corpuscular Volume 79.5 fL (83.0-100.0); Mean Platelet Volume 10.8 fL (9.4-12.4); Monocytes % 7.1 %; Neutrophils # 12.3 K/mcL (1.6-8.9); Platelet Count 290 K/mcL (140-400); Red Blood Count 4.34 M/mcL (4.19-5.50); Red Cell Distribution Width 16.7 % (11.5-14.5); White Blood Count 14.1 K/mcL (4.3-11.1)
[2021-05-08 14:37] LABS: Hepatitis B Surface Antigen Nonreactive (Nonreactive)
[2021-05-08 15:06] LABS: Hepatitis B Core IgM Nonreactive (Nonreactive)
[2021-05-08 15:07] LABS: Hepatitis A Antibody IgM Nonreactive (Nonreactive); Hepatitis C Virus Antibody Nonreactive (Nonreactive)
[2021-05-08] MEDS ORDERED: Haloperidol Lactate 5 MG/ML VIAL IVP PRN (16:21)
[2021-05-08] MEDS: carvediloL 6.25 MG TABLET PO SCH (16:47)
[2021-05-08] MEDS ORDERED: *HR* LORazepam 2 MG/ML VIAL IVP ONE (18:00)
[2021-05-08 20:05] LABS: Platelet Estimate Normal (Normal)
[2021-05-08] MEDS ORDERED: QUEtiapine Fumarate 25 MG TABLET PO SCH (21:00)
[2021-05-08] MEDS ORDERED: Acetaminophen 325 MG TABLET PO ONE (21:56)
[2021-05-09 02:33] LABS: Hematocrit 29.5 % (37.5-50.1); Mean Corpuscular HGB Conc 34.6 g/dL (31.6-35.5); Mean Corpuscular Hemoglobin 27.4 pg (28.0-33.3); Mean Corpuscular Volume 79.3 fL (83.0-100.0); Mean Platelet Volume 10.2 fL (9.4-12.4); Platelet Count 258 K/mcL (140-400); Red Blood Count 3.72 M/mcL (4.19-5.50); Red Cell Distribution Width 16.4 % (11.5-14.5); White Blood Count 12.6 K/mcL (4.3-11.1)
[2021-05-09 02:49] LABS: Calcium 7.9 mg/dL (8.6-10.3); Potassium 3.6 mEq/L (3.5-5.1)
[2021-05-09 02:50] LABS: Hemoglobin 10.2 g/dL (12.9-16.9)
[2021-05-09 03:42] LABS: Hypochromasia Present (Not Present); Lymphocytes # 0.9 K/mcL (0.6-4.6); Monocytes # 0.6 K/mcL (0.0-1.3); Neutrophils # 11.1 K/mcL (1.6-8.9); Poikilocytosis 1+ (Not Present)
[2021-05-09 03:43] LABS: Microcytosis Present (Not Present); Platelet Estimate Normal (Normal); Reactive Lymphocytes Present (Not Present)
[2021-05-09] MEDS: 0.9 % Sodium Chloride 1,000 ML IVC SCH (05:20)
[2021-05-09] MEDS: Budesonide/Formoterol 160/4.5 1 PUFF INH IH SCH (07:31)
[2021-05-09] MEDS: Insulin LISPRO 300 UNITS/3 ML VIAL SUBQ SCH ×3 (08:28→15:45)
[2021-05-09 08:44] LABS: Albumin 2.9 g/dL (3.5-5.7); Albumin/Globulin Ratio 1.2 (1.1-2.2); Bilirubin,Direct 0.6 mg/dL (0.0-0.2); Bilirubin,Indirect 1.3 mg/dL (0.0-1.0); Bilirubin,Total 1.9 mg/dL (0.3-1.0); Globulin 2.5 g/dL (2.4-3.5); Total Protein 5.4 g/dL (6.4-8.9)
[2021-05-09] MEDS: polyethylene glycoL 3350 17 GM POWD.PACK PO SCH (09:01)
[2021-05-09] MEDS: Aspirin 81 MG TAB.CHEW PO SCH (09:01)
[2021-05-09] MEDS: *HR* HYDROcodone/Acet 5/325 mg TABLET PO PRN ×3 (09:01→16:34)
[2021-05-09] MEDS: Cholecalciferol (D-3) 1,000 UNIT (25MCG) TABLET PO SCH (09:01)
[2021-05-09] MEDS: carvediloL 6.25 MG TABLET PO SCH ×2 (09:02→16:36)
[2021-05-09] MEDS: *HR* Amiodarone 200 MG TABLET PO SCH (09:02)
[2021-05-09] MEDS: Cyanocobalamin (B-12) 1,000 MCG TABLET PO SCH (09:02)
[2021-05-09] MEDS: Pregabalin 75 MG CAPSULE PO SCH (09:03)
[2021-05-09] MEDS: Apixaban 5 MG TABLET PO SCH (09:03)
[2021-05-09] MEDS: Fluticasone Propionate Nasal 50 MCG/SPRAY BOTTLE NS SCH (09:04)
[2021-05-09] MEDS ORDERED: Ipratropium/Albuterol Neb 3 ML IH PRN (09:19)
[2021-05-09 14:12] LABS: Amorphous Sediment,Urine Few per hpf (None-Few); Bacteria,Urine Few per hpf (None-Few); Bilirubin,Urine Negative (Negative); Blood,Urine Large (Negative); Clarity,Urine Turbid (Clear); Color,Urine Yellow (Yellow); Glucose,Urine (UA) Normal (Normal); Granular Casts,Urine Few per lpf (None Seen); Ketones,Urine Negative (Negative); Leukocyte Esterase,Urine Negative (Negative); Mucus,Urine Few per lpf (None-Few); Nitrite,Urine Negative (Negative); PH,Urine 5.5 pH Units (5.0-8.0); Protein,Urine 50 mg/dL (Neg-Trace); RBC,Urine 15-30 per hpf (0-3); Specific Gravity,Urine 1.024 (1.010-1.025); Urobilinogen,Urine Normal (Normal)
[2021-05-09 15:25] VITALS: BP 104/54; PULSE 60; TEMP 98.4; O2SAT 95
[2021-05-10 07:27] LABS: ANA IgG by ELISA NONE DETECTED (None Detected)
[2021-05-11 06:58] LABS: Serine Protease-3 Antibody 1 AU/mL (0-19)
[2021-05-11 08:03] LABS: Alpha 2 Globulin (PEP) 0.95 g/dL (0.48-1.05); Beta Globulin (PEP) 0.71 g/dL (0.48-1.10)
[2021-05-11 11:03] LABS: IFE Reflexed NOT DONE
== END 2021-05-09 16:41 | disposition short-term general hospital (02) | DRG 683 ==
LOC: 2ANU 14:49 → EMEROOARM 14:49 → SUATTDRO 18:09 → 2ANU 19:48
PROVIDERS: ADMIT Internal Medicine; ATTEND Family Medicine